=== PATIENT | male | born 1965 | race African-American/Black ===

== ENCOUNTER 2019-03-18 13:37 | Inpatient (IN) | payer OTHER ==
[2019-03-18 15:59] VITALS: BMI 29.2
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
[2019-03-18] MEDS ORDERED: MAGNESIUM CITRATE 300 ML BOTTLE PO PRN (18:42)
[2019-03-18] MEDS ORDERED: MENTHOL/PHENOL 1 EACH UD MM PRN (18:42)
[2019-03-18] MEDS ORDERED: BISMUTH SUBSALICYLATE 524 MG/30 ML UD PO PRN (18:42)
[2019-03-18] MEDS ORDERED: MAGNESIUM HYDROX 2400MG/30ML ORAL SUSPENSION 30 ML CUP PO PRN (18:42)
[2019-03-18] MEDS ORDERED: ACETAMINOPHEN 325 MG TABLET (FP) PO PRN ×2 (18:42)
[2019-03-18] MEDS ORDERED: IBUPROFEN 400 MG TABLET (FP) PO PRN (18:42)
[2019-03-18] MEDS ORDERED: diazePAM 5 MG TABLET PO PRN (18:42)
[2019-03-18] MEDS ORDERED: NICOTINE POLACRILEX 2 MG GUM BUC PRN (18:42)
[2019-03-18] MEDS ORDERED: diazePAM 5 MG TABLET PO ONE (18:42)
[2019-03-18] MEDS ORDERED: hydrOXYzine PAMOATE 25 MG CAPSULE (FP) PO PRN (18:42)
[2019-03-18] MEDS ORDERED: ALBUTEROL SO4 0.083% IH SOL 2.5 MG/3 ML VIAL.NEB. NEB PRN (18:44)
[2019-03-18] MEDS ORDERED: MELATONIN 5 MG TABLETS PO PRN (22:00)
[2019-03-18] MEDS: diazePAM 5 MG TABLET PO SCH (22:11)
[2019-03-18] MEDS: traZODone HCL 100 MG TABLET (FP) PO SCH (22:11)
[2019-03-18] MEDS: METHOCARBAMOL 500 MG TABLET PO PRN (22:12)
[2019-03-18] MEDS: cloNIDine HCL 0.1 MG TABLET PO PRN (22:12)
[2019-03-18] MEDS: THIAMINE HCL 100 MG TABLET (FP) PO SCH (22:12)
[2019-03-19] MEDS: diazePAM 5 MG TABLET PO SCH ×3 (06:03→22:22)
[2019-03-19] MEDS: PRENATAL VITAMINS W/ FOLIC ACID TABLET (FP) PO SCH (09:52)
--- NOTE | 2019-03-19 10:22 | PN ---
[facility] CIWA - CIWA Score Nausea/Vomitin-Mild Nausea/No Vomiting Muscle Tremors: 2 Anxiety: 2 Agitation: 2 Paroxysmal Sweats: 1-Minimal Palms Moist Orientation: 1-Uncertain about Date Tacttile Disturbances: 0-None Auditory Disturbances: 0-None Visual Disturbances: 0-None Headache: 1-Very Mild CIWA-Ar Total Score: 10 [facility] COWS - Scale Resting Pulse: 1= CT 81-100 Sweatin= Chills/Flushing Restless Observation: 0= Sits Still Pupil Size: 0= Normal to Room Light Bone or Joint Aches: 1= Mild Discomfort Runny Nose/ Eye Tearin= None GI Upset > 30mins: 2= Nausea/Diarrhea Tremor Observation of Outstretched Hands: 1= Tremor [place], Not Seen Yawning Observation: 0= None Anxiety or Irritability: 1=Feels Anxious/Irritable Goose Flesh Skin: 0=Smooth Skin COWS Score: 7 S Progress Note (SOAP) Subjective: doing ok with valium detox regimen ambulating on hallway more energy today social with peers in day rrom Objective: 03/19/19 10:22 Vital Signs Temperature 98.1 F 03/19/19 09:14 Pulse Rate 99 H 03/19/19 09:14 Respiratory Rate 18 03/19/19 09:14 Blood Pressure 125/78 03/19/19 09:14 O2 Sat by Pulse Oximetry (%) 03/19/19 10:22 lab pending Assessment: 03/19/19 10:22 withdrawal sx Plan: continue detox
[2019-03-19 10:28] LABS: HEMATOCRIT 33.7 % (35.4-49); HEMOGLOBIN 11.1 GM/dL (11.7-16.9); MCH 30.9 pg (25.7-33.7); MEAN CELL VOLUME 93.6 fl (80-96); PLATELET COUNT 173 K/MM3 (134-434); RDW 14.2 % (11.9-15.9); WHITE BLOOD COUNT 4.2 K/mm3 (4.0-10.0)
[2019-03-19 11:40] LABS: BILIRUBIN,TOTAL 0.2 mg/dL (0.2-1); CALCIUM 8.4 mg/dL (8.5-10.1); CREATININE 1.4 mg/dL (0.55-1.3); POTASSIUM 3.6 mmol/L (3.5-5.1); TOT PROT 6.3 g/dl (6.4-8.2)
[2019-03-19] MEDS: THIAMINE HCL 100 MG TABLET (FP) PO SCH (22:22)
[2019-03-19] MEDS: cloNIDine HCL 0.1 MG TABLET PO PRN (22:22)
[2019-03-19] MEDS: traZODone HCL 100 MG TABLET (FP) PO SCH (22:23)
[2019-03-20] MEDS: MAG HYDROX/AL HYDROX/SIMETH 30 ML UNIT-DOSE CUP PO PRN (00:33)
[2019-03-20] MEDS ORDERED: diazePAM 5 MG TABLET PO SCH ×2 (10:00→14:20)
[2019-03-20] MEDS: PRENATAL VITAMINS W/ FOLIC ACID TABLET (FP) PO SCH (10:24)
--- NOTE | 2019-03-20 13:51 | PN ---
S CIWA - CIWA Score Nausea/Vomitin-Mild Nausea/No Vomiting Muscle Tremors: 2 Anxiety: 3 Agitation: 2 Paroxysmal Sweats: No Perspiration Orientation: 0-Oriented Tacttile Disturbances: 0-None Auditory Disturbances: 0-None Visual Disturbances: 0-None Headache: 0-None Present CIWA-Ar Total Score: 8 S Progress Note (SOAP) Subjective: anxiety restlessness sleep better at night Objective: 03/20/19 13:53 Vital Signs Temperature 97.1 F L 03/20/19 09:29 Pulse Rate 63 03/20/19 09:29 Respiratory Rate 18 03/20/19 09:29 Blood Pressure 154/75 03/20/19 09:29 O2 Sat by Pulse Oximetry (%) Laboratory Last Values WBC 4.2 K/mm3 (4.0-10.0) 03/19/19 07:00 RBC 3.60 M/mm3 (4.00-5.60) L 03/19/19 07:00 Hgb 11.1 GM/dL (11.7-16.9) L 03/19/19 07:00 Hct 33.7 % (35.4-49) L 03/19/19 07:00 MCV 93.6 fl (80-96) 03/19/19 07:00 MCH 30.9 pg (25.7-33.7) 03/19/19 07:00 MCHC 33.0 g/dl (32.0-35.9) 03/19/19 07:00 RDW 14.2 % (11.9-15.9) 03/19/19 07:00 Plt Count 173 K/MM3 (134-434) 03/19/19 07:00 MPV 9.0 fl (7.5-11.1) 03/19/19 07:00 Sodium 139 mmol/L (136-145) 03/19/19 07:00 Potassium 3.6 mmol/L (3.5-5.1) 03/19/19 07:00 Chloride 107 mmol/L (98-107) 03/19/19 07:00 Carbon Dioxide 25 mmol/L (21-32) 03/19/19 07:00 Anion Gap 8 MMOL/L (8-16) 03/19/19 07:00 BUN 14 mg/dL (7-18) 03/19/19 07:00 Creatinine 1.4 mg/dL (0.55-1.3) H 03/19/19 07:00 Est GFR (CKD-EPI)AfAm 65.55 03/19/19 07:00 Est GFR (CKD-EPI)NonAf 56.56 03/19/19 07:00 Random Glucose 172 mg/dL (74-106) H 03/19/19 07:00 Calcium 8.4 mg/dL (8.5-10.1) L 03/19/19 07:00 Total Bilirubin 0.2 mg/dL (0.2-1) 03/19/19 07:00 AST 6 U/L (15-37) L 03/19/19 07:00 ALT 12 U/L (13-61) L 03/19/19 07:00 Alkaline Phosphatase 99 U/L (45-117) 03/19/19 07:00 Total Protein 6.3 g/dl (6.4-8.2) L 03/19/19 07:00 Albumin 3.0 g/dl (3.4-5.0) L 03/19/19 07:00 RPR Titer Nonreactive (NONREACTIVE) 03/19/19 07:00 lab noted Assessment: 03/20/19 13:55 withdrawal sx Plan: continue detox
[2019-03-20] MEDS: diazePAM 5 MG TABLET PO SCH (15:47)
[2019-03-20] MEDS: traZODone HCL 100 MG TABLET (FP) PO SCH (22:16)
[2019-03-20] MEDS: cloNIDine HCL 0.1 MG TABLET PO PRN (22:16)
[2019-03-20] MEDS: THIAMINE HCL 100 MG TABLET (FP) PO SCH (22:16)
[2019-03-20] MEDS: METHOCARBAMOL 500 MG TABLET PO PRN (22:18)
[2019-03-21] MEDS: diazePAM 5 MG TABLET PO SCH ×3 (01:00→23:38)
[2019-03-21] MEDS ORDERED: diazePAM 5 MG TABLET PO SCH (06:00)
[2019-03-21] MEDS: METHOCARBAMOL 500 MG TABLET PO PRN (06:49)
[2019-03-21] MEDS: PRENATAL VITAMINS W/ FOLIC ACID TABLET (FP) PO SCH (10:26)
--- NOTE | 2019-03-21 17:21 | PN ---
[facility] CIWA - CIWA Score Nausea/Vomitin-No Nausea/No Vomiting Muscle Tremors: None Anxiety: 4-Mod. Anxious/Guarded Agitation: 1-Slight > Activity Paroxysmal Sweats: 1-Minimal Palms Moist Orientation: 0-Oriented Tacttile Disturbances: 2-Mild Itch/Numbness/Burn Auditory Disturbances: 0-None Visual Disturbances: 2-Mild Sensitivity Headache: 0-None Present CIWA-Ar Total Score: 10 S COWS - Scale Resting Pulse: 1= ID 81-100 Sweatin= Chills/Flushing Restless Observation: 1= Difficult to Sit Still Pupil Size: 0= Normal to Room Light Bone or Joint Aches: 1= Mild Discomfort Runny Nose/ Eye Tearin= None GI Upset > 30mins: 0= None Tremor Observation of Outstretched Hands: 0= None Yawning Observation: 1= 1-2x During Session Anxiety or Irritability: 2=Irritable/Anxious Goose Flesh Skin: 0=Smooth Skin COWS Score: 7 S Progress Note (SOAP) Subjective: Anxious, Interrupted Sleep, Body Aches. Objective: PATIENT A & O X 3. IN NO ACUTE DISTRESS. 03/21/19 17:22 Vital Signs Temperature 99.1 F 03/21/19 17:05 Pulse Rate 81 03/21/19 17:05 Respiratory Rate 16 03/21/19 17:05 Blood Pressure 131/71 03/21/19 17:05 O2 Sat by Pulse Oximetry (%) Laboratory Tests 03/19/19 03/19/19 03/19/19 07:00 07:00 07:00 WBC 4.2 RBC 3.60 L Hgb 11.1 L Hct 33.7 L MCV 93.6 MCH 30.9 MCHC 33.0 RDW 14.2 Plt Count 173 MPV 9.0 Sodium 139 Potassium 3.6 Chloride 107 Carbon Dioxide 25 Anion Gap 8 BUN 14 Creatinine 1.4 H Est GFR (CKD-EPI)AfAm 65.55 Est GFR (CKD-EPI)NonAf 56.56 Random Glucose 172 H Calcium 8.4 L Total Bilirubin 0.2 AST 6 L ALT 12 L Alkaline Phosphatase 99 Total Protein 6.3 L Albumin 3.0 L RPR Titer Nonreactive LABS NOTED. Assessment: 03/21/19 17:23 WITHDRAWAL SYMPTOMS. Plan: CONTINUE DETOX. INCREASE DAILY PO FLUID / WATER INTAKE. PATIENT SCHEDULED FOR D/C TOMORROW AM. PATIENT IS CURRENTLY RECEIVING DAILY MVI CONTAINING B VITAMINS AND IRON WHILE ADMITTED FOR DETOX.
[2019-03-21] MEDS: MAG HYDROX/AL HYDROX/SIMETH 30 ML UNIT-DOSE CUP PO PRN (18:46)
--- NOTE | 2019-03-21 19:13 | PN ---
[facility] Progress Note (SOAP) Subjective: c/o sharp chest pain. Started on (R) side of sternum and then moved to (L). No recent hx heart burn. States chest pain increases w/ deep breath. PMHX : COPD, CHF, OA hip/knees w/ impaired walking BLE; Nose bleeds every 2-3 months . Hx cocaine and opioid use disorder Objective: Lungs CTA. O2 Sat = 98%. Abd S/NT. No edema. Vital Signs - 24 hr 03/21/19 03/21/19 03/21/19 03:30 06:23 06:30 Temperature 97.9 F Pulse Rate 68 Respiratory 18 18 18 Rate Blood Pressure 112/61 03/21/19 03/21/19 03/21/19 07:04 09:11 13:20 Temperature 98.0 F 99.2 F Pulse Rate 89 81 Respiratory 18 18 18 Rate Blood Pressure 134/71 114/79 03/21/19 03/21/19 17:05 18:20 Temperature 99.1 F 98.9 F Pulse Rate 81 91 H Respiratory 16 19 Rate Blood Pressure 131/71 131/81 Stat EKG: NSR w/(L) axis deviation. Minimal voltage criteria for LVH. Cannot rule out Anterior infract, age undetermined. w/ no prior EKG's for comparison. Assessment: Chest pain w/abnormal EKG - No prior EKG's for comparison. PMH: CHF Alcohol use disorder Opiate use Disorder Osteoarthritis hips/knees w/ chronic pain. Plan: Patient to be sent to [facility] ED for evaluation. Patient transported by ambulance. Report given to Dr. Thomas.
[2019-03-21 19:18] VITALS: BP 131/81; PULSE 91; TEMP 98.9
[2019-03-21] MEDS: traZODone HCL 100 MG TABLET (FP) PO SCH (23:38)
[2019-03-21] MEDS: THIAMINE HCL 100 MG TABLET (FP) PO SCH (23:38)
[2019-03-22] MEDS ORDERED: diazePAM 5 MG TABLET PO ONE (06:00)
[2019-03-22] MEDS: PRENATAL VITAMINS W/ FOLIC ACID TABLET (FP) PO SCH (10:00)
--- NOTE | 2019-03-22 15:44 | EKG ---
Test Reason : Blood Pressure : / mmHG Vent. Rate : 086 BPM Atrial Rate : 086 BPM P-R Int : 126 ms QRS Dur : 082 ms QT Int : 366 ms P-R-T Axes : 059 -31 030 degrees QTc Int : 437 ms NORMAL SINUS RHYTHM LEFT AXIS DEVIATION MINIMAL VOLTAGE CRITERIA FOR LVH, MAY BE NORMAL VARIANT CANNOT RULE OUT ANTERIOR INFARCT , AGE UNDETERMINED ABNORMAL ECG NO PREVIOUS ECGS AVAILABLE Confirmed by MD Iron, Jerry ([id number]) on 03/22/2019 3:43:46 PM Referred By: Confirmed By:Jerry Perdue MD
== END 2019-03-22 15:31 | disposition short-term general hospital (02) | DRG 774 ==
LOC: YASAS 13:37 → Y3N 16:15
PROVIDERS: ADMIT Surgery; ATTEND Surgery
PROC: HZ2ZZZZ Detoxification Services for Substance Abuse Treatment (ICD-10-PCS; principal; 2019-03-18)
DX: F10.230 Alcohol dependence with withdrawal, uncomplicated (principal); F14.20 Cocaine dependence, uncomplicated; F17.210 Nicotine dependence, cigarettes, uncomplicated; I50.9 Heart failure, unspecified; J44.9 Chronic obstructive pulmonary disease, unspecified; M16.0 Bilateral primary osteoarthritis of hip; M17.0 Bilateral primary osteoarthritis of knee; R26.2 Difficulty in walking, not elsewhere classified; G89.29 Other chronic pain; R07.9 Chest pain, unspecified; R94.31 Abnormal electrocardiogram [ECG] [EKG]
CPT/HCPCS: 36415; 80053; 85027; 86593; 93005; 93010; J0735

== ENCOUNTER 2019-03-21 20:18 | Observation (INO) | payer OTHER ==
[2019-03-21 20:45] VITALS: BMI 28.7
--- NOTE | 2019-03-21 21:06 | PDOC ---
History of Present Illness - General Chief Complaint: Chest Pain Stated Complaint: CHEST PAIN - History of Present Illness Initial Comments: The pt is a 53M w/ a reported history of CHF, COPD, OA, EtOH abuse, heroin abuse , and cocaine abuse who presents from [facility] for evaluation of 3-4 hours of chest pain. The pain began as substernal but is now left-sided, constant, sharp , non-radiating, associated with mild shortness of breath, and is not alleviated by anything that he can identify. Denies fevers/chills, vision changes, N/V/C/D, dysuria, hematuria, or blood in his stool. PMH: CHF, COPD, EtOH/cocaine/heroin abuse Allergies: Denies medication allergies 03/21/19 22:10 Past History - Past Medical History Allergies/Adverse Reactions: Allergies Allergy/AdvReac Type Severity Reaction Status Date / Time mayonnaise Allergy Verified 03/21/19 20:43 hot cereal Allergy Uncoded 03/21/19 20:43 Home Medications: Ambulatory Orders NK [No Known Home Medication] 03/21/19 Asthma: No Cardiac Disorders: No COPD: No Diabetes: No GI Disorders: No Disorders: No HTN: No Kidney Stones: No Seizures: No - Surgical History Abdominal Surgery: No Appendectomy: No Cardiac Surgery: No Cholecystectomy: No Lung Surgery: No Neurologic Surgery: No Orthopedic Surgery: No - Reproductive History Testicular Surgery: No - Suicide/Smoking/Psychosocial Hx Smoking History: Unknown if ever smoked Have you smoked in the past 12 months: Yes Number of Cigarettes Smoked Daily: 5 Information on smoking cessation initiated: No Hx Alcohol Use: Yes Drug/Substance Use Hx: Yes (cocaine/heroin) Hx Substance Use Treatment: No Review of Systems - Review of Systems Able to Perform ROS?: Yes Comments:: GENERAL/CONSTITUTIONAL: No fever or chills. No weakness HEAD, EYES, EARS, NOSE AND THROAT: No change in vision. No ear pain or discharge. No sore throat CARDIOVASCULAR: +chest pain RESPIRATORY: Denies cough, hemoptysis GASTROINTESTINAL: No nausea, vomiting, diarrhea or constipation GENITOURINARY: No dysuria, frequency, or change in urination MUSCULOSKELETAL: +chronic b/l hip and knee pain SKIN: No rash NEUROLOGIC: No headache, vertigo, loss of consciousness, or change in strength/ sensation ENDOCRINE: No increased thirst. No abnormal weight change Is the patient limited Bulgarian proficient: No *Physical Exam - Vital Signs Last Vital Signs Temp Pulse Resp BP Pulse Ox 97.9 F 92 H 18 138/82 100 03/21/19 20:43 03/21/19 20:43 03/21/19 20:43 03/21/19 20:43 03/21/19 20:43 - Physical Exam Comments: GENERAL: Awake, alert, and oriented to person/place/time, in no acute distress HEAD: No signs of trauma, normocephalic, atraumatic EYES: PERRLA, EOMI, sclera anicteric, conjunctiva clear ENT: Hearing grossly normal, nares patent, oropharynx clear without exudates. No uvular deviation. Moist mucosa CHEST: LUNGS: No distress, speaks full sentences, clear to auscultation bilaterally HEART: Regular rate and rhythm, normal S1 and S2, no murmurs appreciated, peripheral pulses normal and equal bilaterally ABDOMEN: Soft, nontender, normoactive bowel sounds. No guarding, no rebound. No masses EXTREMITIES: Normal inspection, Normal range of motion, no edema. No clubbing or cyanosis NEUROLOGICAL: Cranial nerves II through XII grossly intact. Normal speech, normal gait, no focal sensorimotor deficits SKIN: Warm, Dry 03/22/19 00:26 ED Treatment Course - LABORATORY CBC & Chemistry Diagram: 03/22/19 05:56 03/22/19 05:56 Medical Decision Making - Medical Decision Making The pt is a 53M w/ a history of CHF, COPD, EtOH abuse, cocaine abuse, and heroin abuse who presents for evaluation of sharp chest pain ED Course CMP, CBC, Trop I, BNP ECG Neb x1 Toradol 30mg IV once for pain No leukocytosis Mild anemia, Hgb 11.3, no indication to transfuse at this time Lytes wnl LFTs unremarkable Cr 1.4, same as previous BNP elevated ECG w/ NSR; HR 75; New T-wave inversions in I, II, III, V5, V5 when compared to an ECG performed at 1800 today. No others to compare with. Trop I neg ASA 324 PO given once 03/21/19 22:26 CXR w/ possible R pleural effusion versus infiltrate, cardiomegaly, no PNX, Plan for admission for chest pain w/ T-wave changes for further cardiac evaluation 03/21/19 22:41 *DC/Admit/Observation/Transfer Diagnosis at time of Disposition: Alcohol abuse, Heroin abuse Chest pain Qualifiers: Chest pain type: unspecified Qualified Code(s): R07.9 - Chest pain, unspecified COPD (chronic obstructive pulmonary disease) Qualifiers: COPD type: unspecified COPD Qualified Code(s): J44.9 - Chronic obstructive pulmonary disease, unspecified CHF (congestive heart failure) Qualifiers: Heart failure type: unspecified Heart failure chronicity: unspecified Qualified Code(s): I50.9 - Heart failure, unspecified Cocaine dependence Qualifiers: Substance use status: uncomplicated Qualified Code(s): F14.20 - Cocaine dependence, uncomplicated - Discharge Dispostion Condition at time of disposition: Good Decision to Admit order: Yes - Referrals - Patient Instructions - Post Discharge Activity
[2019-03-21 21:13] LABS: BASO % 0.7 % (0-2.0); MEAN CELL VOLUME 94.1 fl (80-96); MEAN PLT VOLUME 8.8 fl (7.5-11.1); WHITE BLOOD COUNT 5.4 K/mm3 (4.0-10.0)
[2019-03-21] MEDS ORDERED: KETOROLAC TROMETHAMINE 30 MG/1 ML VIAL IVPUSH ONE (21:13)
[2019-03-21 21:21] LABS: EOS % 2.1 % (0-4.5); HEMATOCRIT 35.2 % (35.4-49); HEMOGLOBIN 11.3 GM/dL (11.7-16.9); LYMPH % 25.8 % (8-40); MCH 30.2 pg (25.7-33.7); MCHC 32.1 g/dl (32.0-35.9); MONO % 7.3 % (3.8-10.2); NEUT % 64.1 % (42.8-82.8); PLATELET COUNT 160 K/MM3 (134-434); RBC 3.74 M/mm3 (4.00-5.60); RDW 13.7 % (11.9-15.9)
[2019-03-21 21:51] LABS: ALBUMIN 2.8 g/dl (3.4-5.0); BILIRUBIN,TOTAL 0.1 mg/dL (0.2-1); CALCIUM 8.7 mg/dL (8.5-10.1); CREATININE 1.4 mg/dL (0.55-1.3); POTASSIUM 4.4 mmol/L (3.5-5.1)
[2019-03-21] MEDS ORDERED: ALBUTEROL SO4 2.5/IPRATROPIUM 0.5 INH SOL 3 ML VIAL.NEB. NEB ONE ×2 (22:01→22:25)
[2019-03-21] MEDS ORDERED: KETOROLAC TROMETHAMINE 30 MG/1 ML VIAL ONE (22:25)
[2019-03-21] MEDS ORDERED: ASPIRIN 81 MG CHEWABLE TABLETS PO ONE (22:32)
--- NOTE | 2019-03-21 23:34 | PN ---
Teaching Attending Note Name of Resident: Brennan Salazar ATTENDING PHYSICIAN STATEMENT I saw and evaluated the patient. I reviewed the resident's note and discussed the case with the resident. I agree with the resident's findings and plan as documented. SUBJECTIVE: Patient is a 53 year old man with PMH of CHF, COPD, osteoarthritis, EtOH abuse, heroin abuse, and cocaine abuse who presents from [facility] for evaluation of 3- 4 hours of chest pain. The pain began as substernal but is now left-sided, constant, sharp, non-radiating, associated with mild shortness of breath, and is not alleviated by anything that he can identify. Denies fevers, chills, vision changes, nausea, vomiting, constipation, diarrhea, dysuria, hematuria, or hematochezia. Says he last used cocaine 1 week ago but drinks alcohol daily. OBJECTIVE: Alert Vital Signs Period Temp Pulse Resp BP Sys/Craig Pulse Ox Last 24 Hr 97.9 F 92 18 138/82 100 HEENT: No Jaundice, eye redness or discharge, PERRLA, EOMI. Normocephalic, atraumatic. External ears are normal and hearing is grossly intact. No nasal discharge. Neck: Supple, nontender. No palpable adenopathy or thyromegaly. No JVD Chest: Good effort. Clear to auscultation. Point tenderness left chest wall. Heart: Regular. No S3, rub or murmur Abdomen: Not distended, soft, nontender and no HSM. No rebound or guarding. Normal bowel sounds. Ext: Peripheral pulses intact. No leg edema. Dystrophic and unkempt toe nails, flaky dry skin in both legs. Skin: Warm and dry. No petechiae, rash or ecchymosis. Neuro: Alert. Oriented x3. CN 2-12 grossly intact. Sensation grossly intact in all four extremities and DTR are symmetric. Psych: Appropriate mood and affect. Good insight. Home Medications Medication Instructions Recorded NK [No Known Home Medication] 03/21/19 Abnormal Lab Results 03/21/19 03/21/19 03/21/19 21:05 21:05 21:05 RBC 3.74 L Hgb 11.3 L Hct 35.2 L Anion Gap 6 L BUN 22 H Creatinine 1.4 H Random Glucose 155 H Total Bilirubin 0.1 L AST 10 L B-Natriuretic Peptide 529.1 H Total Protein 6.0 L Albumin 2.8 L ASSESSMENT AND PLAN: 1. Chest pain - Pain is atypical, but he has risk factors and dynamic EKG changes. ECG in the ER showed NSR with T-wave inversions in I, II, III, V5, V5, ST depression in II when compared to an ECG performed at 1800 today at [facility]. Initial troponin is negative. CXR shows cardiomegaly with obscured right CP angle. ASA 324 PO given once in the ER. Will admit to telemetry to rule out ACS, get ECHO and cardiology consult. Will get chest CT to clarify findings on CXR. 2. Hypoalbuminemia - Possibly due to combined effects of malnutrition and inflammation associated with comorbid chronic conditions. Will ensure adequate dietary protein intake and also consult net front end developer. Will get urinalysis to rule out proteinuria. 3. Tobacco Use Counseled on risks associated with tobacco use. We will provide patient all the necessary assistance to facilitate smoking cessation and prescribe Nicotine patch. 4. YUMIKO? - Cause unclear. Has risk factors for CKD. Will get CPK, urinalysis, kidney sonogram, PTH and phospahte. Hydrate orally. Avoid nephrotoxic agents such as NSAIDS, aminoglycosides, contrast dyes and certain Alternative medicine products. 5. Anemia - Cause unclear. Mild, but will do basic anemia work up including serial stool guaiacs, reticulocyte count and iron studies. 6. Hypertension - Restart outpatient antihypertensive drugs and revise regimen to ensure smooth [id number] good BP control. Nonpharmacologic measures to control hypertension like weight loss, salt restriction and exercise discussed. 7. Alcohol/Drug abuse - Implement [facility] alcohol withdrawal protocol and do neurochecks. Monitor for drug withdrawal. Implement seizure, fall and aspiration precautions. Treat with thiamine and folic acid and monitor electrolytes (Ca,Mg,K,P). Counseled patient about abstaining from alcohol and illicit drug use. Will consult ehs specialist and refer to detox upon discharge. 8. DVT prophylaxis - Heparin 5000u sq tid. 9. Advance directives - Full code
[2019-03-22] MEDS ORDERED: KETOROLAC TROMETHAMINE 15 MG/ML VIAL IVPUSH PRN (00:59)
[2019-03-22] MEDS ORDERED: ACETAMINOPHEN 325 MG TABLET (FP) PO PRN (00:59)
--- NOTE | 2019-03-22 01:06 | HP ---
CHIEF COMPLAINT: chest pain PCP: [facility] [place] HISTORY OF PRESENT ILLNESS: 53 yo M with PMH of CHF (pt reported), COPD (pt reported), OA, EtOH abuse, heroin abuse, and cocaine abuse who presents from [facility] for evaluation of 3- 4 hours of sharp non radiating constant initially substernal but now L sided 8/ 10 chest pain, associated with mild SOB, and is not alleviated by anything that he can identify. pt says pain began after he pushed himself up from his chair with his arms. he did this bec his legs/knees hurt from his OA. pt says he has had cp in the past but not like this, and pain is not similar to gerd. pt received toradol w/ some relief but not much Denies fevers, chills, vision changes, nausea, vomiting, constipation, diarrhea , dysuria, hematuria, or hematochezia. Says he last used cocaine and alcohol 1 week ago but drinks. typically drinks 3 x 24 - oz cans 5-7 x/week lives in apartment in [place]. his medical care is at the [facility] [place] [facility] course was notable for: (1)ECG w/ NSR; HR 75; New T-wave inversions in I, II, III, V5, V6 and ST depression in II, III, AVF when compared to an ECG performed at 1800 today. Trop I negx1. ASA 324 PO given once (2)Neb x1, Toradol 30mg IV x1 (3)BNP 529, Mild anemia, Hgb 11.3 Recent Travel: PAST MEDICAL HISTORY: OA , COPD , CHF PAST SURGICAL HISTORY: dx of OA and is pending hip replacement April 24 @ [facility] . PSych : bipolar d/o , PTSD , denies current SI / Hi , past suicide attempts x 4 , most recently approx 10 years ago by cutting wrists , previously w/ pills Social History: Smoking: < 1/2 ppd Alcohol:3 x 24 - oz cans 5-7 x/week , latest use 1 week ago Drugs: heroin use : 2-3 bags via inhalation , first use 6-7 months ago. 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 age 29 murdered ) , Mother, Brother (4 older siblings ), Sister (1 d. AIDS , 1 D. cirrhosis liver ), Daughter (2 , A & W , 1 - 29 , 1 - age 14 lives in [place] ) Allergies mayonnaise Allergy (Verified 03/21/19 20:43) hot cereal Allergy (Uncoded 03/21/19 20:43) HOME MEDICATIONS: Home Medications Medication Instructions Recorded NK [No Known Home Medication] 03/21/19 REVIEW OF SYSTEMS per hpi PHYSICAL EXAMINATION Vital Signs - 24 hr 03/21/19 20:43 Temperature 97.9 F Pulse Rate 92 H Respiratory 18 Rate Blood Pressure 138/82 O2 Sat by Pulse 100 Oximetry (%) GENERAL: Awake, alert, and fully oriented, in mild acute distress. HEAD: Normal with no signs of trauma. EYES: extraocular movements intact, sclera anicteric, conjunctiva clear. No lid lag. EARS, NOSE, THROAT: nares patent, oropharynx clear without exudates. Moist mucous membranes. NECK: Normal range of motion, supple without lymphadenopathy, JVD, or masses. LUNGS: CTAB HEART: RRR normal S1 and S2 without murmur, rub or gallop. TTP left chest wall. ABDOMEN: Soft, nontender, not distended, normoactive bowel sounds, no guarding, no rebound, no masses. No hepatomegaly or splenomegaly. MUSCULOSKELETAL: Normal range of motion at all joints. No bony deformities or tenderness. No CVA tenderness. UPPER EXTREMITIES: 2+ pulses, warm, well-perfused. No cyanosis. No clubbing. No peripheral edema. LOWER EXTREMITIES: 2+ pulses, warm, well-perfused. No calf tenderness. No peripheral edema. Dystrophic and unkempt toe nails, flaky dry skin in both legs , no ulcers noted NEUROLOGICAL: Cranial nerves II-XII intact. Normal speech. PSYCHIATRIC: Cooperative. Good eye contact. Appropriate mood and affect. SKIN: Warm, dry, normal turgor, no rashes or lesions noted, normal capillary refill. Laboratory Results - last 24 hr 03/21/19 03/21/19 03/21/19 21:05 21:05 21:05 WBC 5.4 RBC 3.74 L Hgb 11.3 L Hct 35.2 L MCV 94.1 MCH 30.2 MCHC 32.1 RDW 13.7 Plt Count 160 MPV 8.8 Absolute Neuts (auto) 3.5 Neutrophils % 64.1 Lymphocytes % 25.8 Monocytes % 7.3 Eosinophils % 2.1 Basophils % 0.7 Nucleated RBC % 0 Sodium 140 Potassium 4.4 Chloride 107 Carbon Dioxide 26 Anion Gap 6 L BUN 22 H Creatinine 1.4 H Est GFR (CKD-EPI)AfAm 65.55 Est GFR (CKD-EPI)NonAf 56.56 Random Glucose 155 H Calcium 8.7 Total Bilirubin 0.1 L AST 10 L ALT 15 Alkaline Phosphatase 101 Troponin I 0.02 B-Natriuretic Peptide 529.1 H Total Protein 6.0 L Albumin 2.8 L ASSESSMENT/PLAN: 53 yo M with PMH of CHF (pt reported), COPD (pt reported), OA, EtOH abuse, heroin abuse, and cocaine abuse who presents from [facility] for evaluation of 3- 4 hours of sharp non radiating constant initially substernal but now L sided 8/ 10 chest pain, associated with mild SOB, and is not alleviated by anything that he can identify. Atypical Chest pain, r/o ACS w/ new EKG changes - ECG w/ NSR; HR 75; New T-wave inversions in I, II, III, V5, V6 and ST depression in II, III, AVF when compared to an ECG performed at 1800 today. Trop negx1. s/p ASA 324 PO in ED. pt pain is reproducible and in the setting of pushing himself up from his chair with his arms pain may be 2/2 muscle strain. however given risk factors and dynamic EKG changes will need to r/o ACS -s/p ASA 324 PO in ED -rpt ekg trop -Utox -tele -cardio consult, gitig -lipid panel, A1C, TSH -echo -pain ctl: tylenol toradol -CXR shows cardiomegaly with obscured right CP angle. -consider chest CT to clarify findings on CXR. YUMIKO? vs CKD? - Cr 1.4, only prior lab from 2 days ago. Avoid nephrotoxic agents. po hydration Mild Normorcytic Anemia - Cause unclear. reticulocyte count and iron studies. folate, B12 HTN - pt says he used to take lisinopril pt will need med rec Alcohol/Drug abuse - monitor for withdrawal consider detox consult consider ativan prn for sxs seizure, fall and aspiration precautions. thiamine and folic acid replete lytes prn FEN po hydration replete prn low salt diet ppx SQH tid Full code dispo tele obs Visit type - Emergency Visit Emergency Visit: Yes ED Registration Date: 03/22/19 Care time: The patient presented to the Emergency Department on the above date and was hospitalized for further evaluation of their emergent condition. - New Patient This patient is new to me today: Yes Date on this admission: 03/22/19 - Critical Care Critical Care patient: No
[2019-03-22] MEDS ORDERED: HEPARIN NA (PORCINE) 5,000 UNITS/ML 1ML VIAL ONE (01:17)
[2019-03-22] MEDS ORDERED: ASPIRIN 81 MG CHEWABLE TABLETS ONE (01:17)
--- NOTE | 2019-03-22 01:30 | PDOC ---
Documentation entered by Darryl Montiel SCRIBE, acting as scribe for Rika Conte MD. Rika Conte MD: This documentation has been prepared by the melibe, Darryl Montiel SCRIBE, under my direction and personally reviewed by me in its entirety. I confirm that the documentation accurately reflects all work, treatment, procedures, and medical decision making performed by me. Attending Attestation - Resident Resident Name: Anant Thomas - ED Attending Attestation I have performed the following: I have examined & evaluated the patient, The case was reviewed & discussed with the resident, I agree w/resident's findings & plan - HPI HPI: 03/21/19 21:38 The patient is a 53 year old male with a significant past medical history of CHF and COPD who presents to the emergency department with chest pain since earlier this evening. The patient states that he was at home when he went to stand up and experienced a sudden onset of sharp substernal chest pain. He states that his chest pain is not persistent and reports some associated shortness of breath. He states that this pain doesn't feel like his COPD or CHF. He denies any fever, chills, nausea, vomiting, diarrhea, constipation, palpitation, abdominal pain, dizziness or weakness. The patient denies any other complaints. - Physicial Exam PE: 03/21/19 23:59 ADULT EXAM GENERAL: Awake, alert, and fully oriented, in no acute distress HEAD: No signs of trauma EYES: PERRLA, EOMI, sclera anicteric, conjunctiva clear ENT: Auricles normal inspection, hearing grossly normal, nares patent, oropharynx clear without exudates. Moist mucosa NECK: Normal ROM, supple, no lymphadenopathy, JVD, or masses LUNGS: Breath sounds equal, clear to auscultation bilaterally. No wheezes, and no crackles HEART: Regular rate and rhythm, normal S1 and S2, no murmurs, rubs or gallops ABDOMEN: Soft, nontender, normoactive bowel sounds. No guarding, no rebound. No masses EXTREMITIES: Normal range of motion, no edema. No clubbing or cyanosis. No cords, erythema, or tenderness NEUROLOGICAL: Cranial nerves II through XII grossly intact. Normal speech, normal gait SKIN: Warm, Dry, normal turgor, no rashes or lesions noted. - Medical Decision Making 03/22/19 01:27 Pt will be admitted to the tele unit as he has EKG changes, flipped T waves inferolaterally. He also has a hx of CAD and he used cocaine as well as a hx of polysubstance abuse. First set of enzymes normal.
[2019-03-22] MEDS: HEPARIN NA (PORCINE) 5,000 UNITS/ML 1ML VIAL SQ SCH ×3 (01:35→17:05)
[2019-03-22 07:19] LABS: METHADONE, UR NEGATIVE ng/ml (CUTOFF=300); OPIATES, URI NEGATIVE ng/ml (CUTOFF=300); PHENCYCLIDINE,URINE NEGATIVE ng/ml (CUTOFF=25); URINE AMPHETAMINES NEGATIVE ng/ml (CUTOFF=500); URINE BARBITURATES NEGATIVE ng/ml (CUTOFF=200)
[2019-03-22 07:20] LABS: BASO % 0.6 % (0-2.0); EOS % 2.1 % (0-4.5); HEMATOCRIT 34.8 % (35.4-49); HEMOGLOBIN 11.5 GM/dL (11.7-16.9); LYMPH % 29.8 % (8-40); MCH 30.9 pg (25.7-33.7); MCHC 33.2 g/dl (32.0-35.9); MEAN CELL VOLUME 93.1 fl (80-96); MEAN PLT VOLUME 9.2 fl (7.5-11.1); MONO % 6.5 % (3.8-10.2); PLATELET COUNT 158 K/MM3 (134-434); RBC 3.74 M/mm3 (4.00-5.60); RDW 13.5 % (11.9-15.9); WHITE BLOOD COUNT 5.2 K/mm3 (4.0-10.0)
[2019-03-22 08:15] LABS: COCAINE, UR POSITIVE ng/ml (CUTOFF=300); URINE BENZODIAZEPINES POSITIVE ng/ml (CUTOFF=200)
[2019-03-22 08:34] LABS: ALBUMIN 2.8 g/dl (3.4-5.0); BILIRUBIN,TOTAL 0.3 mg/dL (0.2-1); CALCIUM 8.7 mg/dL (8.5-10.1); CREATININE 1.3 mg/dL (0.55-1.3); MAGNESIUM 2.3 mg/dL (1.8-2.4); PHOSPHOROUS 2.2 mg/dL (2.5-4.9); POTASSIUM 4.7 mmol/L (3.5-5.1)
--- NOTE | 2019-03-22 08:37 | CON.CARD ---
Consult Consult Specialty:: cardio - History of Present Illness Chief Complaint: cp History of Present Illness: 53 M here with CP. pain began when pushed himself up out of a chair using his arms. sternal to L pectoral locations at first, sharp quality, reproducible on palpitation. currently, pain very localized (2-3 fingerbreadths) L parasternal region, very tender and reproducible--worse when breathes in. feels sob at time of pain spasms. otherwise feels breathing is "a little restricted" no palpit, syncope sees a collector of port as outpatient for CHF. was on diuretic in past but was eventually stopped PMH: reports h/o CHF and COPD bipolar, PTSD etoh abuse cocaine, heroin abuse - Alcohol/Substance Use Hx Alcohol Use: Yes - Smoking History Smoking history: Current every day smoker Have you smoked in the past 12 months: Yes Aproximately how many cigarettes per day: 5 Home Medications - Allergies Allergies/Adverse Reactions: Allergies Allergy/AdvReac Type Severity Reaction Status Date / Time mayonnaise Allergy Verified 03/21/19 20:43 hot cereal Allergy Uncoded 03/21/19 20:43 - Home Medications Home Medications: Ambulatory Orders NK [No Known Home Medication] 03/21/19 Family Disease History - Family Disease History Family Disease History: Diabetes: Mother (chf), Other: Grandparent (chf ), Father (d. age 29 murdered ), Mother, Brother (4 older siblings ), Sister (1 d. AIDS , 1 D. cirrhosis liver ), Daughter (2 , A & W , 1 - 29 , 1 - age 14 lives in [place] ) Review of Systems - Review of Systems Constitutional: denies: Chills, Fever Eyes: denies: Eye Pain HENT: denies: Nasal Congestion Neck: denies: Stiffness Cardiovascular: denies: Palpitations Respiratory: denies: Orthopnea, PND Gastrointestinal: denies: Diarrhea, Rectal Bleeding Genitourinary: denies: Burning, Hematuria Musculoskeletal: denies: Muscle Pain Integumentary: denies: Rash Neurological: denies: Numbness, Seizure, Syncope Endocrine: denies: Excessive Sweating Hematology/Lymphatic: denies: Excessive Bleeding Vital Signs: Vital Signs Temperature 97.6 F 03/22/19 05:27 Pulse Rate 70 03/22/19 05:27 Respiratory Rate 16 03/22/19 05:27 Blood Pressure 145/79 03/22/19 05:27 O2 Sat by Pulse Oximetry (%) 100 03/22/19 02:05 Constitutional: Yes: Well Nourished, No Distress Eyes: No: Sclera Icterus HENT: No: Nasal Congestion Neck: No: Decreased ROM Respiratory: Yes: CTA Bilaterally. No: Accessory Muscle Use, Rales, Wheezes Gastrointestinal: Yes: Normal Bowel Sounds. No: Distention, Hepatomegaly, Palpable Mass, Tenderness Cardiovascular: Yes: Regular Rate and Rhythm, Other (localized tenderness over chief complaint area, reproduces the pain) JVD: No Carotid Bruit: No PMI: Non-Displaced Heart Sounds: Yes: S1, S2. No: Gallop Murmur: No: Systolic Murmur, Diastolic Murmur Musculoskeletal: Yes: Other (No kyphosis) Extremities: No: Cool, Cyanosis Edema: No Peripheral Pulses: 2+ Left Carotid, 2+ Right Carotid, 2+ Left Doralis Pedis, 2+ Right Dorsalis Pedis Integumentary: No: Jaundice Neurological: Yes: Alert, Oriented (x3) Psychiatric: No: Agitated - Other Data Labs, Other Data: CBC, BMP 03/22/19 05:56 Troponin, BNP 03/21/19 03/21/19 03/22/19 21:05 21:05 00:15 Troponin I 0.02 0.02 B-Natriuretic Peptide 529.1 H 03/22/19 03/22/19 05:56 05:56 Troponin I 0.02 Cancelled B-Natriuretic Peptide Troponin, BNP 03/21/19 03/21/19 03/22/19 21:05 21:05 00:15 Troponin I 0.02 0.02 B-Natriuretic Peptide 529.1 H 03/22/19 03/22/19 05:56 05:56 Troponin I 0.02 Cancelled B-Natriuretic Peptide Laboratory Tests 03/21/19 03/21/19 03/22/19 21:05 21:05 00:15 WBC Hgb Plt Count Sodium 140 Potassium 4.4 Carbon Dioxide 26 BUN 22 H Creatinine 1.4 H AST 10 L ALT 15 Troponin I 0.02 0.02 B-Natriuretic Peptide 529.1 H Albumin 2.8 L Triglycerides Cholesterol Total LDL Cholesterol HDL Cholesterol 03/22/19 03/22/19 05:56 05:56 WBC 5.2 Hgb 11.5 L Plt Count 158 Sodium Potassium Carbon Dioxide BUN Creatinine AST ALT Troponin I 0.02 B-Natriuretic Peptide Albumin Triglycerides 146 Cholesterol 116 Total LDL Cholesterol 57 HDL Cholesterol 41 Assessment/Plan ECG #1 (03/21, 18:00): NSR, LAFB, YEYO. nonsp ST-Ts infer and lateral leads ECG #2 (03/21, 22:17): NSR, LAFB, YEYO. NSST-Ts inferior and lateral leads, now involving V5/6 as well (new TWIs here) CXR: clear lungs/pleura chest pain: -nonspecific change in ST-Ts from 1st to 2nd ecg (though remains lateral leads, the second also involved V5/6 with deeper TWI's in previously abnormal leads) -trop neg x 3 -rpt ECG today -suspect these ecg variations are nonspecific finding related to underlying LVH (though voltages not high) and/or to CHF. -his pain is costochondritis and he has no ACS--rec prn ibuprofen CHF, ? type: -no details, pt reports prior hx treated by outside cardio cardiomegaly on CXR, nonsp ECG changes--? underlying hypertensive heart dz. -echo -currently with mild sob. euvolemic appearing with clear cxr--? mild volume up. -will give lasix 40 IV x 1 today--observe response (including labs) HTN: -mildly hypertensive here (sbp 130s-140s) -defer meds for now polysubstance abuse: -per hospitalist
[2019-03-22] MEDS: FOLIC ACID 1 MG TABLET (FP) PO SCH (09:32)
[2019-03-22] MEDS: THIAMINE HCL 100 MG TABLET (FP) PO SCH ×2 (09:32→21:01)
--- NOTE | 2019-03-22 11:15 | PN ---
Progress Note (short form) - Note Progress Note: Patient is lying in bed c/o having lower extremity pain. Vital Signs Temperature 98.2 F 03/22/19 09:01 Pulse Rate 85 03/22/19 09:01 Respiratory Rate 18 03/22/19 09:01 Blood Pressure 141/72 03/22/19 09:01 O2 Sat by Pulse Oximetry (%) 100 03/22/19 10:00 GENERAL: Awake, alert, and fully oriented, in mild acute distress. HEAD: Normal with no signs of trauma. EYES: extraocular movements intact, sclera anicteric, conjunctiva clear. EARS, NOSE, THROAT: oropharynx clear without exudates. Moist mucous membranes. NECK: Normal range of motion, supple without lymphadenopathy, JVD, or masses. LUNGS: CTAB HEART: RRR normal S1 and S2 without murmur, rub or gallop. ABDOMEN: Soft, nontender, not distended, normoactive bowel sounds, no guarding, no rebound, no masses. No hepatomegaly or splenomegaly. MUSCULOSKELETAL: Normal range of motion at all joints. No bony deformities or tenderness. No CVA tenderness. EXTREMITIES: 2+ pulses, warm, well-perfused. No calf tenderness. No peripheral edema. dry skin. NEUROLOGICAL: Cranial nerves II-XII intact. Normal speech. PSYCHIATRIC: Cooperative. Good eye contact. Appropriate mood and affect. SKIN: Warm, dry, normal turgor, no rashes or lesions noted, normal capillary refill. CBCD WBC 5.2 K/mm3 (4.0-10.0) 03/22/19 05:56 RBC 3.74 M/mm3 (4.00-5.60) L 03/22/19 05:56 Hgb 11.5 GM/dL (11.7-16.9) L 03/22/19 05:56 Hct 34.8 % (35.4-49) L 03/22/19 05:56 MCV 93.1 fl (80-96) 03/22/19 05:56 MCHC 33.2 g/dl (32.0-35.9) 03/22/19 05:56 RDW 13.5 % (11.9-15.9) 03/22/19 05:56 Plt Count 158 K/MM3 (134-434) 03/22/19 05:56 MPV 9.2 fl (7.5-11.1) 03/22/19 05:56 CMP Sodium 139 mmol/L (136-145) 03/22/19 05:56 Potassium 4.7 mmol/L (3.5-5.1) 03/22/19 05:56 Chloride 107 mmol/L (98-107) 03/22/19 05:56 Carbon Dioxide 28 mmol/L (21-32) 03/22/19 05:56 Anion Gap 5 MMOL/L (8-16) L 03/22/19 05:56 BUN 25 mg/dL (7-18) H 03/22/19 05:56 Creatinine 1.3 mg/dL (0.55-1.3) 03/22/19 05:56 Random Glucose 85 mg/dL (74-106) 03/22/19 05:56 Calcium 8.7 mg/dL (8.5-10.1) 03/22/19 05:56 Total Bilirubin 0.3 mg/dL (0.2-1) 03/22/19 05:56 AST 13 U/L (15-37) L 03/22/19 05:56 ALT 15 U/L (13-61) 03/22/19 05:56 Alkaline Phosphatase 77 U/L (45-117) 03/22/19 05:56 Total Protein 6.0 g/dl (6.4-8.2) L 03/22/19 05:56 Albumin 2.8 g/dl (3.4-5.0) L 03/22/19 05:56 CARDIAC ENZYMES Troponin I 0.02 ng/ml (0.00-0.05) 03/22/19 05:56 Current Medications Generic Name Dose Route Start Last Admin Trade Name Freq PRN Reason Stop Dose Admin Acetaminophen 650 mg 03/22/19 00:59 Tylenol - PO Q4H PRN PAIN LEVEL 6-10 Folic Acid 1 mg 03/22/19 10:00 03/22/19 09:32 Folic Acid - PO 1 mg DAILY GIULIANA Administration Heparin Sodium (Porcine) 5,000 unit 03/22/19 02:00 03/22/19 09:32 Heparin - SQ 5,000 unit Q8H-IV GIULIANA Administration Ketorolac Tromethamine 15 mg 03/22/19 04:17 Toradol Injection - IVPUSH 03/27/19 00:58 Q6H PRN PAIN LEVEL 6-10 Thiamine HCl 100 mg 03/22/19 10:00 03/22/19 09:32 Vitamin B1 - PO 100 mg BID GIULIANA Administration Home Medications Medication Instructions Recorded NK [No Known Home Medication] 03/21/19 XR: clear lungs/pleura Assessment and plan: Patient is a 53 yo M with PMHx of CHF , COPD as per patient , OA, EtOH abuse, heroin abuse, and cocaine abuse who presents from [facility] for evaluation of acute chest pain that lasted for 3 hours. Patient admits to using cocaine. # Acute chest pain r/o ACS : CE negative as per cardio to Tx to med surge s/p ASA in ED, cardio consult dr. Dupont appreciated, lipid panel, A1C, TSH, echo # Polysubstance abuse : monitor for withdrawal , detox consult , ativan prn , seizure, fall and aspiration precautions, thiamine and folic acid ,replete lytes prn # YUMIKO: IVF /oral hydration # HTN - on lisinopril DVT Px: Heparin Visit type - Emergency Visit Emergency Visit: Yes ED Registration Date: 03/22/19 Care time: The patient presented to the Emergency Department on the above date and was hospitalized for further evaluation of their emergent condition. - New Patient This patient is new to me today: No - Critical Care Critical Care patient: No - Discharge Referral Referred to [facility] Med [facility].C[facility] No
[2019-03-22] MEDS ORDERED: FUROSEMIDE 40 MG/4 ML INJECTABLE VIAL IVPUSH ONE (11:44)
[2019-03-22] MEDS: KETOROLAC TROMETHAMINE 30 MG/1 ML VIAL IVPUSH PRN (13:33)
--- NOTE | 2019-03-22 15:27 | EKG ---
Test Reason : Blood Pressure : / mmHG Vent. Rate : 075 BPM Atrial Rate : 075 BPM P-R Int : 140 ms QRS Dur : 076 ms QT Int : 394 ms P-R-T Axes : 053 -31 -51 degrees QTc Int : 439 ms NORMAL SINUS RHYTHM LEFT AXIS DEVIATION NONSPECIFIC T WAVE ABNORMALITY ABNORMAL ECG WHEN COMPARED WITH ECG OF 21-MAR-2019 22:17, NO SIGNIFICANT CHANGE WAS FOUND Confirmed by MD Iron, Jerry ([id number]) on 03/22/2019 3:26:38 PM Referred By: Faviola BAINS Confirmed By:Jerry Perdue MD
--- NOTE | 2019-03-22 15:31 | EKG ---
Test Reason : Blood Pressure : / mmHG Vent. Rate : 075 BPM Atrial Rate : 075 BPM P-R Int : 142 ms QRS Dur : 078 ms QT Int : 398 ms P-R-T Axes : 057 -18 258 degrees QTc Int : 444 ms NORMAL SINUS RHYTHM T WAVE ABNORMALITY, CONSIDER INFEROLATERAL ISCHEMIA ABNORMAL ECG WHEN COMPARED WITH ECG OF 21-MAR-2019 18:00, INVERTED T WAVES HAVE REPLACED NONSPECIFIC T WAVE ABNORMALITY IN INFERIOR LEADS Confirmed by MD Iron, Jerry ([id number]) on 03/22/2019 3:31:46 PM Referred By: Confirmed By:Jerry Perdue MD
[2019-03-22] MEDS: NAPH,MB-DB/K PH,MBDB POWDER PACKET PO SCH (21:01)
[2019-03-22] MEDS ORDERED: MELATONIN 5 MG TABLETS PO ONE (22:00)
[2019-03-23] MEDS ORDERED: MELATONIN 5 MG TABLETS PO ONE (01:37)
[2019-03-23] MEDS ORDERED: METOPROLOL TARTRATE 5 MG/5 ML VIAL IVPUSH ONE (01:40)
[2019-03-23] MEDS: HEPARIN NA (PORCINE) 5,000 UNITS/ML 1ML VIAL SQ SCH ×4 (01:44→22:38)
[2019-03-23] MEDS ORDERED: METOPROLOL TARTRATE 25 MG TABLET (FP) PO ONE (02:18)
[2019-03-23] MEDS ORDERED: traZODone HCL 100 MG TABLET (FP) PO ONE (03:04)
[2019-03-23 06:37] LABS: SERUM IRON SATURATION 24 % (15-55); TOTAL IRON BINDING CAPACITY 256 ug/dL (250-450); UIBC 194 ug/dL (111-343)
[2019-03-23 07:35] LABS: CALCIUM 8.8 mg/dL (8.5-10.1); CREATININE 1.4 mg/dL (0.55-1.3); POTASSIUM 4.4 mmol/L (3.5-5.1)
--- NOTE | 2019-03-23 08:16 | PN ---
Progress Note, Physician Chief Complaint: cp History of Present Illness: cp much less--still localized and pleuritic thinks breathing still feels a bit short and restricted--not his baseline. signif urine output after lasix yest no leg swelling no palpit - Current Medication List Current Medications: Active Medications Acetaminophen (Tylenol -) 650 mg PO Q4H PRN PRN Reason: PAIN LEVEL 6-10 Last Admin: 03/22/19 12:19 Dose: 650 mg Folic Acid (Folic Acid -) 1 mg PO DAILY [facility] Last Admin: 03/22/19 09:32 Dose: 1 mg Heparin Sodium (Porcine) (Heparin -) 5,000 unit SQ Q8H-IV GIULIANA Last Admin: 03/23/19 01:44 Dose: 5,000 unit Ketorolac Tromethamine (Toradol Injection -) 15 mg IVPUSH Q6H PRN PRN Reason: PAIN LEVEL 6-10 Stop: 03/27/19 00:58 Last Admin: 03/22/19 13:33 Dose: 15 mg Potassium Phos/Sodium Phos (Phos-Nak Packet -) 1 packet PO BID [facility] Stop: 03/23/19 22:01 Last Admin: 03/22/19 21:01 Dose: Not Given Thiamine HCl (Vitamin B1 -) 100 mg PO BID [facility] Last Admin: 03/22/19 21:01 Dose: Not Given - Objective Vital Signs: Vital Signs Temperature 97.5 F L 03/23/19 06:00 Pulse Rate 66 03/23/19 06:00 Respiratory Rate 18 03/23/19 06:00 Blood Pressure 135/76 03/23/19 06:00 O2 Sat by Pulse Oximetry (%) 100 03/23/19 02:00 Constitutional: Yes: Well Nourished, No Distress, Calm Cardiovascular: Yes: Regular Rate and Rhythm, S1, S2. No: Gallop, Murmur Respiratory: Yes: Regular, CTA Bilaterally. No: Accessory Muscle Use, Rales, Wheezes Extremities: No: Cold Edema: No Neurological: Yes: Alert, Oriented Psychiatric: No: Agitated Labs: CBC, BMP 03/22/19 05:56 03/23/19 06:25 Assessment/Plan ECG #1 (03/21, 18:00): NSR, LAFB, YEYO. nonsp ST-Ts infer and lateral leads ECG #2 (03/21, 22:17): NSR, LAFB, YEYO. NSST-Ts inferior and lateral leads, now involving V5/6 as well (new TWIs here) ECG #3 (03/22): NSR, no signif change (V5 TWI now upright) CXR: clear lungs/pleura chest pain, abnormal ECG: -trop neg x 3 -his pain is costochondritis and he has no ACS--rec prn ibuprofen -nonspecific change on serial ECGs, suspect these ecg variations are nonspecific finding related to underlying LVH (though voltages not high) and/or to CHF. CHF, ? type: -no details, pt reports prior hx treated by outside cardio cardiomegaly on CXR, nonsp ECG changes--? underlying hypertensive heart dz. -echo -currently with mild sob. euvolemic appearing with clear cxr--? mild volume up. -given lasix 40 IV trial on 03/22--creat stable, bun up slightly -03/23: sob sx's equivocal for HF related (no other signs of chf... ? withdrawal sx). repeat lasix 40 IV x 1 today. reassess labs tomorrow, ? po maintenance lasix vs hold HTN: -BP to 170s, given metoprolol PO x1 -start amlodipine polysubstance abuse: -per hospitalist
--- NOTE | 2019-03-23 08:52 | PN ---
Physical Exam: SUBJECTIVE: Patient seen and examined at bedside. He had trouble sleeping. complains of pain in legs, knees, chest. No other complaints. No ANGEL, nausea, vomiting, diarrhea. OBJECTIVE: Vital Signs Period Temp Pulse Resp BP Sys/Craig Pulse Ox Last 24 Hr 97.5 F-98.5 F 66-92 18-18 135-172/72-95 100-100 Gen: comfortable, NAD HEENT: NCAT, EOMI Neck: no jvd, supple Cardio: rrr, norm s1s2, no mrg appreciated Pulm: cta b/l, no rales/ronchi Abd: nondistended, soft, nontender Ext: no edema, 2+ pulses Laboratory Results - last 24 hr 03/22/19 03/22/19 03/22/19 05:56 05:56 05:56 Retic Count 0.72 Sodium Potassium Chloride Carbon Dioxide Anion Gap BUN Creatinine Est GFR (CKD-EPI)AfAm Est GFR (CKD-EPI)NonAf Random Glucose Hemoglobin A1c % 5.6 Calcium Iron 62 TIBC 256 Iron Saturation 24 03/23/19 06:25 Retic Count Sodium 137 Potassium 4.4 Chloride 104 Carbon Dioxide 29 Anion Gap 4 L BUN 29 H Creatinine 1.4 H Est GFR (CKD-EPI)AfAm 65.55 Est GFR (CKD-EPI)NonAf 56.56 Random Glucose 88 Hemoglobin A1c % Calcium 8.8 Iron TIBC Iron Saturation Active Medications Generic Name Dose Route Start Last Admin Trade Name Freq PRN Reason Stop Dose Admin Acetaminophen 650 mg 03/22/19 00:59 03/22/19 12:19 Tylenol - PO 650 mg Q4H PRN Administration PAIN LEVEL 6-10 Amlodipine Besylate 5 mg 03/23/19 10:00 Norvasc - PO DAILY GIULIANA Folic Acid 1 mg 03/22/19 10:00 03/22/19 09:32 Folic Acid - PO 1 mg DAILY GIULIANA Administration Heparin Sodium (Porcine) 5,000 unit 03/22/19 02:00 03/23/19 01:44 Heparin - SQ 5,000 unit Q8H-IV GIULIANA Administration Ketorolac Tromethamine 15 mg 03/22/19 04:17 03/22/19 13:33 Toradol Injection - IVPUSH 03/27/19 00:58 15 mg Q6H PRN Administration PAIN LEVEL 6-10 Potassium Phos/Sodium Phos 1 packet 03/22/19 22:00 03/22/19 21:01 Phos-Nak Packet - PO 03/23/19 22:01 Not Given BID [facility] Thiamine HCl 100 mg 03/22/19 10:00 03/22/19 21:01 Vitamin B1 - PO Not Given BID [facility] ASSESSMENT/PLAN: 53 yo M with PMH of CHF (pt reported), COPD (pt reported), OA, EtOH abuse, heroin abuse, and cocaine abuse who presents from [facility] for evaluation of chest pain. Put was put on tele obs for ACS r/o. #r/o ACS -trop neg x 3 -EKG with nonspecific ST and T wave changes unchanged on repeat study -Cardio consulted: pain likely costochondritis, ? LVH, ? CHF, echo pending #HTN -on lisinopril. 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
[2019-03-23] MEDS: NAPH,MB-DB/K PH,MBDB POWDER PACKET PO SCH ×2 (09:16→22:38)
[2019-03-23] MEDS: THIAMINE HCL 100 MG TABLET (FP) PO SCH ×2 (09:17→22:38)
[2019-03-23] MEDS: KETOROLAC TROMETHAMINE 30 MG/1 ML VIAL IVPUSH PRN ×2 (09:17→22:41)
[2019-03-23] MEDS: FOLIC ACID 1 MG TABLET (FP) PO SCH (09:18)
[2019-03-23] MEDS: amLODIPine BESYLATE 5 MG TABLET (FP) PO SCH (09:18)
[2019-03-23] MEDS ORDERED: FUROSEMIDE 40 MG/4 ML INJECTABLE VIAL IVPUSH ONE (09:55)
--- NOTE | 2019-03-23 13:07 | PN ---
Teaching Attending Note Name of Resident: Chema Macias ATTENDING PHYSICIAN STATEMENT I saw and evaluated the patient. I reviewed the resident's note and discussed the case with the resident. I agree with the resident's findings and plan as documented. SUBJECTIVE: Patient is comfortable with no acute distress. Patient feels better today. OBJECTIVE: Vital Signs Temperature 97.4 F L 03/23/19 09:00 Pulse Rate 78 03/23/19 09:00 Respiratory Rate 18 03/23/19 10:00 Blood Pressure 127/87 03/23/19 09:00 O2 Sat by Pulse Oximetry (%) 100 03/23/19 10:00 Initial Vital Signs Temp Pulse Resp BP Pulse Ox 97.9 F 92 H 18 138/82 100 03/21/19 20:43 03/21/19 20:43 03/21/19 20:43 03/21/19 20:43 03/21/19 20:43 GENERAL: Awake, alert, and fully oriented, in mild acute distress. HEAD: Normal with no signs of trauma. EYES: extraocular movements intact, sclera anicteric, conjunctiva clear. EARS, NOSE, THROAT: oropharynx clear without exudates. Moist mucous membranes. NECK: Normal range of motion, supple without lymphadenopathy, JVD, or masses. LUNGS: CTAB HEART: RRR normal S1 and S2 without murmur, rub or gallop. ABDOMEN: Soft, NT,ND, normoactive bowel sounds, no guarding, no rebound, no masses. No hepatomegaly or splenomegaly. MUSCULOSKELETAL: Normal range of motion at all joints. No bony deformities or tenderness. No CVA tenderness. EXTREMITIES: 2+ pulses, warm, well-perfused. No calf tenderness. No peripheral edema. dry skin. NEUROLOGICAL: Cranial nerves II-XII intact. Normal speech. PSYCHIATRIC: Cooperative. Good eye contact. Appropriate mood and affect. SKIN: Warm, dry, normal turgor, no rashes or lesions noted, normal capillary refill. CBCD WBC 5.2 K/mm3 (4.0-10.0) 03/22/19 05:56 RBC 3.74 M/mm3 (4.00-5.60) L 03/22/19 05:56 Hgb 11.5 GM/dL (11.7-16.9) L 03/22/19 05:56 Hct 34.8 % (35.4-49) L 03/22/19 05:56 MCV 93.1 fl (80-96) 03/22/19 05:56 MCHC 33.2 g/dl (32.0-35.9) 03/22/19 05:56 RDW 13.5 % (11.9-15.9) 03/22/19 05:56 Plt Count 158 K/MM3 (134-434) 03/22/19 05:56 MPV 9.2 fl (7.5-11.1) 03/22/19 05:56 CMP Sodium 137 mmol/L (136-145) 03/23/19 06:25 Potassium 4.4 mmol/L (3.5-5.1) 03/23/19 06:25 Chloride 104 mmol/L (98-107) 03/23/19 06:25 Carbon Dioxide 29 mmol/L (21-32) 03/23/19 06:25 Anion Gap 4 MMOL/L (8-16) L 03/23/19 06:25 BUN 29 mg/dL (7-18) H 03/23/19 06:25 Creatinine 1.4 mg/dL (0.55-1.3) H 03/23/19 06:25 Random Glucose 88 mg/dL (74-106) 03/23/19 06:25 Calcium 8.8 mg/dL (8.5-10.1) 03/23/19 06:25 Total Bilirubin 0.3 mg/dL (0.2-1) 03/22/19 05:56 AST 13 U/L (15-37) L 03/22/19 05:56 ALT 15 U/L (13-61) 03/22/19 05:56 Alkaline Phosphatase 77 U/L (45-117) 03/22/19 05:56 Total Protein 6.0 g/dl (6.4-8.2) L 03/22/19 05:56 Albumin 2.8 g/dl (3.4-5.0) L 03/22/19 05:56 CARDIAC ENZYMES Troponin I 0.02 ng/ml (0.00-0.05) 03/22/19 05:56 Current Medications Generic Name Dose Route Start Last Admin Trade Name Freq PRN Reason Stop Dose Admin Acetaminophen 650 mg 03/22/19 00:59 05/25/19 12:19 Tylenol - PO 650 mg Q4H PRN Administration PAIN LEVEL 6-10 Amlodipine Besylate 5 mg 03/23/19 10:00 03/23/19 09:18 Norvasc - PO 5 mg DAILY GIULIANA Administration Folic Acid 1 mg 03/22/19 10:00 03/23/19 09:18 Folic Acid - PO 1 mg DAILY GIULIANA Administration Heparin Sodium (Porcine) 5,000 unit 03/22/19 02:00 03/23/19 09:19 Heparin - SQ 5,000 unit Q8H-IV GIULIANA Administration Ketorolac Tromethamine 15 mg 03/22/19 04:17 03/23/19 09:17 Toradol Injection - IVPUSH 03/27/19 00:58 15 mg Q6H PRN Administration PAIN LEVEL 6-10 Potassium Phos/Sodium Phos 1 packet 03/22/19 22:00 03/23/19 09:16 Phos-Nak Packet - PO 03/23/19 22:01 1 packet BID GIULIANA Administration Thiamine HCl 100 mg 03/22/19 10:00 03/23/19 09:17 Vitamin B1 - PO 100 mg BID GIULIANA Administration Home Medications Medication Instructions Recorded NK [No Known Home Medication] 03/21/19 XR: clear lungs/pleura Assessment and plan: Patient is a 53 yo M with PMHx of CHF , COPD as per patient , OA, EtOH abuse, heroin abuse, and cocaine abuse who presents from [facility] for evaluation of acute chest pain that lasted for 3 hours. Patient admits to using cocaine. # Acute chest pain r/o ACS : CE negative as per cardio to Tx to med surge s/p ASA in ED, cardio consult dr. Dupont appreciated, lipid panel, A1C, TSH, echo ordered, as per cardio need echo.since had ekg changes nonspecific with hx of polysubstance abuse. # Polysubstance abuse : monitor for withdrawal , detox consult , ativan prn , seizure, fall and aspiration precautions, thiamine and folic acid ,replete lytes prn # YUMIKO: IVF /oral hydration # HTN - on Norvasc contine DVT Px: Heparin
[2019-03-23] MEDS ORDERED: CELECOXIB 100 MG CAPSULE PO PRN (13:59)
[2019-03-23] MEDS ORDERED: PT OWN MED DRAWER 7, Y5N ONE (18:30)
[2019-03-23] MEDS ORDERED: traZODone HCL 50 MG TABLET (FP) ONE (22:31)
[2019-03-23] MEDS: traZODone HCL 100 MG TABLET (FP) PO PRN (22:37)
[2019-03-24] MEDS: HEPARIN NA (PORCINE) 5,000 UNITS/ML 1ML VIAL SQ SCH ×3 (05:54→21:52)
[2019-03-24 08:16] LABS: CALCIUM 8.8 mg/dL (8.5-10.1); CREATININE 1.7 mg/dL (0.55-1.3); POTASSIUM 4.5 mmol/L (3.5-5.1)
[2019-03-24] MEDS: FOLIC ACID 1 MG TABLET (FP) PO SCH (10:11)
[2019-03-24] MEDS: amLODIPine BESYLATE 5 MG TABLET (FP) PO SCH (10:11)
[2019-03-24] MEDS: THIAMINE HCL 100 MG TABLET (FP) PO SCH ×2 (10:11→21:48)
--- NOTE | 2019-03-24 11:59 | PN ---
Progress Note, Physician Chief Complaint: sob History of Present Illness: breathing still a little short/restricted off and on. no more cp no swelling no palpit - Current Medication List Current Medications: Active Medications Acetaminophen (Tylenol -) 650 mg PO Q4H PRN PRN Reason: PAIN LEVEL 6-10 Last Admin: 03/22/19 12:19 Dose: 650 mg Amlodipine Besylate (Norvasc -) 5 mg PO DAILY COUNTS INCLUDE 234 BEDS AT THE [facility] Last Admin: 03/24/19 10:11 Dose: 5 mg Celecoxib (Celebrex -) 100 mg PO BID PRN PRN Reason: PAIN Folic Acid (Folic Acid -) 1 mg PO DAILY COUNTS INCLUDE 234 BEDS AT THE [facility] Last Admin: 03/24/19 10:11 Dose: 1 mg Heparin Sodium (Porcine) (Heparin -) 5,000 unit SQ TID COUNTS INCLUDE 234 BEDS AT THE [facility] Last Admin: 03/24/19 05:54 Dose: Not Given Ketorolac Tromethamine (Toradol Injection -) 15 mg IVPUSH Q6H PRN PRN Reason: PAIN LEVEL 6-10 Stop: 03/27/19 00:58 Last Admin: 03/23/19 22:41 Dose: 15 mg Thiamine HCl (Vitamin B1 -) 100 mg PO BID COUNTS INCLUDE 234 BEDS AT THE [facility] Last Admin: 03/24/19 10:11 Dose: 100 mg Trazodone HCl (Desyrel -) 200 mg PO HS PRN PRN Reason: INSOMNIA Last Admin: 03/23/19 22:37 Dose: 200 mg - Objective Vital Signs: Vital Signs Temperature 97.8 F 03/24/19 06:00 Pulse Rate 69 03/24/19 06:00 Respiratory Rate 20 03/24/19 06:00 Blood Pressure 131/74 03/24/19 06:00 O2 Sat by Pulse Oximetry (%) 100 03/24/19 04:00 Constitutional: Yes: Well Nourished, No Distress, Calm Cardiovascular: Yes: Regular Rate and Rhythm, S1, S2. No: Gallop, Murmur Respiratory: Yes: Regular, CTA Bilaterally. No: Accessory Muscle Use, Rales, Wheezes Extremities: No: Cold Edema: No Neurological: Yes: Alert, Oriented Psychiatric: No: Agitated Labs: CBC, BMP 03/22/19 05:56 03/24/19 07:30 Assessment/Plan ECG #1 (03/21, 18:00): NSR, LAFB, YEYO. nonsp ST-Ts infer and lateral leads ECG #2 (03/21, 22:17): NSR, LAFB, YEYO. NSST-Ts inferior and lateral leads, now involving V5/6 as well (new TWIs here) ECG #3 (03/22): NSR, no signif change (V5 TWI now upright) CXR: clear lungs/pleura chest pain, abnormal ECG: -trop neg x 3 -his pain is costochondritis and he has no ACS--rec prn ibuprofen -nonspecific change on serial ECGs, suspect these ecg variations are nonspecific finding related to underlying LVH (though voltages not high) and/or to CHF. CHF, ? type: -no details, pt reports prior hx treated by outside cardio cardiomegaly on CXR, nonsp ECG changes--? underlying hypertensive heart dz. -currently with mild sob. euvolemic appearing with clear cxr--? mild volume up. -given lasix 40 IV trial on 03/22--creat stable, bun up slightly -03/23: sob sx's equivocal for HF related (no other signs of chf... ? withdrawal sx). repeat lasix 40 IV x 1 today. reassess labs tomorrow, ? po maintenance lasix vs hold -03/24: appears euvolemic, labs a bit dry. ongoing mild sob at times--this is clearly not CHF sx. no more lasix. observe clinically -echo tomorrow HTN: -started amlodipine here -bp controlled -same meds polysubstance abuse: -per hospitalist
--- NOTE | 2019-03-24 18:21 | PN ---
Progress Note (short form) - Note Progress Note: patient is comfortable with no acute distress, having difficulty with ambulation. Vital Signs Temperature 98.4 F 03/24/19 14:00 Pulse Rate 105 H 03/24/19 14:00 Respiratory Rate 21 H 03/24/19 14:00 Blood Pressure 137/68 03/24/19 14:00 O2 Sat by Pulse Oximetry (%) 100 03/24/19 12:00 GENERAL: Awake, alert, and fully oriented, in mild acute distress. HEAD: Normal with no signs of trauma. EYES: extraocular movements intact, sclera anicteric, conjunctiva clear. EARS, NOSE, THROAT: oropharynx clear without exudates. Moist mucous membranes. NECK: Normal range of motion, supple without lymphadenopathy, JVD, or masses. LUNGS: CTAB HEART: RRR normal S1 and S2 without murmur, rub or gallop. ABDOMEN: Soft, NT,ND, normoactive bowel sounds, no guarding, no rebound, no masses. No hepatomegaly or splenomegaly. MUSCULOSKELETAL: Normal range of motion at all joints. No bony deformities or tenderness. No CVA tenderness. EXTREMITIES: 2+ pulses, warm, well-perfused. No calf tenderness. No peripheral edema. dry skin. NEUROLOGICAL: Cranial nerves II-XII intact. Normal speech. PSYCHIATRIC: Cooperative. Good eye contact. Appropriate mood and affect. SKIN: Warm, dry, normal turgor, no rashes or lesions noted, normal capillary refill. CBCD WBC 5.2 K/mm3 (4.0-10.0) 03/22/19 05:56 RBC 3.74 M/mm3 (4.00-5.60) L 03/22/19 05:56 Hgb 11.5 GM/dL (11.7-16.9) L 03/22/19 05:56 Hct 34.8 % (35.4-49) L 03/22/19 05:56 MCV 93.1 fl (80-96) 03/22/19 05:56 MCHC 33.2 g/dl (32.0-35.9) 03/22/19 05:56 RDW 13.5 % (11.9-15.9) 03/22/19 05:56 Plt Count 158 K/MM3 (134-434) 03/22/19 05:56 MPV 9.2 fl (7.5-11.1) 03/22/19 05:56 CMP Sodium 140 mmol/L (136-145) 03/24/19 07:30 Potassium 4.5 mmol/L (3.5-5.1) 03/24/19 07:30 Chloride 106 mmol/L (98-107) 03/24/19 07:30 Carbon Dioxide 28 mmol/L (21-32) 03/24/19 07:30 Anion Gap 6 MMOL/L (8-16) L 03/24/19 07:30 BUN 34 mg/dL (7-18) H 03/24/19 07:30 Creatinine 1.7 mg/dL (0.55-1.3) H 03/24/19 07:30 Random Glucose 91 mg/dL (74-106) 03/24/19 07:30 Calcium 8.8 mg/dL (8.5-10.1) 03/24/19 07:30 Total Bilirubin 0.3 mg/dL (0.2-1) 03/22/19 05:56 AST 13 U/L (15-37) L 03/22/19 05:56 ALT 15 U/L (13-61) 03/22/19 05:56 Alkaline Phosphatase 77 U/L (45-117) 03/22/19 05:56 Total Protein 6.0 g/dl (6.4-8.2) L 03/22/19 05:56 Albumin 2.8 g/dl (3.4-5.0) L 03/22/19 05:56 CARDIAC ENZYMES Troponin I 0.02 ng/ml (0.00-0.05) 03/22/19 05:56 Current Medications Generic Name Dose Route Start Last Admin Trade Name Freq PRN Reason Stop Dose Admin Acetaminophen 650 mg 03/22/19 00:59 03/22/19 12:19 Tylenol - PO 650 mg Q4H PRN Administration PAIN LEVEL 6-10 Amlodipine Besylate 5 mg 03/23/19 10:00 03/24/19 10:11 Norvasc - PO 5 mg DAILY GIULIANA Administration Celecoxib 100 mg 03/23/19 13:59 Celebrex - PO BID PRN PAIN Folic Acid 1 mg 03/22/19 10:00 03/24/19 10:11 Folic Acid - PO 1 mg DAILY GIULIANA Administration Heparin Sodium (Porcine) 5,000 unit 03/23/19 19:46 03/24/19 14:22 Heparin - SQ 5,000 unit TID GIULIANA Administration Ketorolac Tromethamine 15 mg 03/22/19 04:17 03/23/19 22:41 Toradol Injection - IVPUSH 03/27/19 00:58 15 mg Q6H PRN Administration PAIN LEVEL 6-10 Thiamine HCl 100 mg 03/22/19 10:00 03/24/19 10:11 Vitamin B1 - PO 100 mg BID GIULIANA Administration Trazodone HCl 200 mg 03/23/19 13:59 03/23/19 22:37 Desyrel - PO 200 mg HS PRN Administration INSOMNIA Home Medications Medication Instructions Recorded NK [No Known Home Medication] 03/21/19 XR: clear lungs/pleura Assessment and plan: Patient is a 53 yo M with PMHx of CHF , COPD as per patient , OA, EtOH abuse, heroin abuse, and cocaine abuse who presents from [facility] for evaluation of acute chest pain that lasted for 3 hours. Patient admits to using cocaine. # Acute chest pain r/o ACS : CE negative , cardio consult dr. Dupont appreciated , echo ordered for am ,on admission patient had ekg changes nonspecific with hx of polysubstance abuse. # Polysubstance abuse: no withdrawal symptoms , detox consult , ativan prn , seizure, fall and aspiration precautions, thiamine and folic acid ,replete lytes prn # YUMIKO: IVF/oral hydration # HTN - on Norvasc contine DVT Px: Heparin Visit type - Emergency Visit Emergency Visit: Yes ED Registration Date: 03/22/19 Care time: The patient presented to the Emergency Department on the above date and was hospitalized for further evaluation of their emergent condition. - New Patient This patient is new to me today: No - Critical Care Critical Care patient: No - Discharge Referral Referred to [facility] No
[2019-03-24] MEDS: KETOROLAC TROMETHAMINE 30 MG/1 ML VIAL IVPUSH PRN (19:35)
[2019-03-24] MEDS ORDERED: ACETAMINOPHEN 325 MG TABLET (FP) PO PRN (20:20)
[2019-03-24] MEDS ORDERED: KETOROLAC TROMETHAMINE 30 MG/1 ML VIAL IVPUSH PRN (20:20)
[2019-03-24] MEDS ORDERED: traZODone HCL 50 MG TABLET (FP) ONE (21:39)
[2019-03-24] MEDS: traZODone HCL 100 MG TABLET (FP) PO PRN (21:48)
[2019-03-25] MEDS: HEPARIN NA (PORCINE) 5,000 UNITS/ML 1ML VIAL SQ SCH ×2 (05:50→14:01)
[2019-03-25 06:08] VITALS: TEMP 98.2
[2019-03-25] MEDS ORDERED: PT OWN MED DRAWER 7, Y5N ONE (06:23)
[2019-03-25 08:49] LABS: CALCIUM 8.6 mg/dL (8.5-10.1); CREATININE 1.5 mg/dL (0.55-1.3); POTASSIUM 4.4 mmol/L (3.5-5.1)
[2019-03-25] MEDS ORDERED: FOLIC ACID 1 MG TABLET (FP) PO SCH (10:00)
[2019-03-25] MEDS: THIAMINE HCL 100 MG TABLET (FP) PO SCH (10:24)
[2019-03-25] MEDS: amLODIPine BESYLATE 5 MG TABLET (FP) PO SCH (10:25)
[2019-03-25 12:17] VITALS: BP 132/76; PULSE 79
--- NOTE | 2019-03-25 12:49 | ECHO ---
Version: 1 Name: SOLEDAD CABRAL Exam: Adult Echocardiogram Study Date: 03/25/2019, 11:17 AM Age: 53 Years MMode/2D Measurements & Calculations IVSd: 1.07 cm LVIDs: 4.1 cm LVIDd: 5.6 cm LVPWd: 1.05 cm LVOT diam: 2.21 cm Ao root diam: 3.0 cm LA dimension: 3.9 cm Doppler Measurements & Calculations MV E max romero: 62.2 cm/sec Med E/e': 10.7 MV A max romero: 101.7 cm/sec Med Peak E' Romero: 5.8 cm/sec MV E/A: 0.61 Lat E/e': 10.9 Lat Peak E' Romero: 5.7 cm/sec MR max P.1 mmHg Ao max P.2 mmHg HARVEY(I,D): 1.48 cm Ao mean P.5 mmHg LV V1 mean: 44.5 cm/sec Ao V2 max: 160.0 cm/sec LV V1 mean P.92 mmHg TR max romero: 259.6 cm/sec TR max P.1 mmHg Left Ventricle The left ventricular size, thickness and function are normal. Abnormal diastolic relaxation. Right Ventricle The right ventricle is normal in size and function. Atria Normal left and right atrial size and function. Mitral Valve The mitral valve is grossly normal. Tricuspid Valve The tricuspid valve is not well visualized, but is grossly normal. There is mild tricuspid regurgita tion. Aortic Valve The aortic valve is normal in structure and function. Pulmonic Valve The pulmonic valve leaflets are thin and pliable; valve motion is normal. Great Vessels The aortic root is normal size. Summary Statements The left ventricular size, thickness and function are normal The right ventricle is normal in size and function. Normal left and right atrial size and function. The mitral valve is grossly normal. There is mild tricuspid regurgitation. The aortic valve is normal in structure and function. The aortic root is normal size. EF 53% PASP 41 Mild pulmonary HTN MD Jerry Perdue 03/25/2019, 11:48 AM Ordering Physician: MADHU CAM Referring Physician: MARIA GUADALUPE STANLEY Performed By: Laura Clements
--- NOTE | 2019-03-25 14:06 | PN ---
Teaching Attending Note Name of Resident: Brennan Salazar ATTENDING PHYSICIAN STATEMENT I saw and evaluated the patient. I reviewed the resident's note and discussed the case with the resident. I agree with the resident's findings and plan as documented. SUBJECTIVE: Patient is comfortable with no acute distress. no headache, no nausea or vomiting. OBJECTIVE: Vital Signs Temperature 98.2 F 03/25/19 10:00 Pulse Rate 79 03/25/19 10:00 Respiratory Rate 18 03/25/19 10:00 Blood Pressure 132/76 03/25/19 10:00 O2 Sat by Pulse Oximetry (%) 100 03/25/19 04:15 Initial Vital Signs Temp Pulse Resp BP Pulse Ox 97.9 F 92 H 18 138/82 100 03/21/19 20:43 03/21/19 20:43 03/21/19 20:43 03/21/19 20:43 03/21/19 20:43 GENERAL: Awake, alert, and fully oriented, in mild acute distress. HEAD: Normal with no signs of trauma. EYES: extraocular movements intact, sclera anicteric, conjunctiva clear. EARS, NOSE, THROAT: oropharynx clear without exudates. Moist mucous membranes. NECK: Normal range of motion, supple without lymphadenopathy, JVD, or masses. LUNGS: CTAB HEART: RRR normal S1 and S2 without murmur, rub or gallop. ABDOMEN: Soft, NT,ND, normoactive bowel sounds, no guarding, no rebound, no masses. No hepatomegaly or splenomegaly. MUSCULOSKELETAL: Normal range of motion at all joints. No bony deformities or tenderness. No CVA tenderness. EXTREMITIES: 2+ pulses, warm, well-perfused. No calf tenderness. No peripheral edema. dry skin. NEUROLOGICAL: Cranial nerves II-XII intact. Normal speech. PSYCHIATRIC: Cooperative. Good eye contact. Appropriate mood and affect. SKIN: Warm, dry, normal turgor, no rashes or lesions noted, normal capillary refill. CBCD WBC 5.2 K/mm3 (4.0-10.0) 03/22/19 05:56 RBC 3.74 M/mm3 (4.00-5.60) L 03/22/19 05:56 Hgb 11.5 GM/dL (11.7-16.9) L 03/22/19 05:56 Hct 34.8 % (35.4-49) L 03/22/19 05:56 MCV 93.1 fl (80-96) 03/22/19 05:56 MCHC 33.2 g/dl (32.0-35.9) 03/22/19 05:56 RDW 13.5 % (11.9-15.9) 03/22/19 05:56 Plt Count 158 K/MM3 (134-434) 03/22/19 05:56 MPV 9.2 fl (7.5-11.1) 03/22/19 05:56 CMP Sodium 140 mmol/L (136-145) 03/25/19 07:45 Potassium 4.4 mmol/L (3.5-5.1) 03/25/19 07:45 Chloride 108 mmol/L (98-107) H 03/25/19 07:45 Carbon Dioxide 26 mmol/L (21-32) 03/25/19 07:45 Anion Gap 6 MMOL/L (8-16) L 03/25/19 07:45 BUN 36 mg/dL (7-18) H 03/25/19 07:45 Creatinine 1.5 mg/dL (0.55-1.3) H 03/25/19 07:45 Random Glucose 93 mg/dL (74-106) 03/25/19 07:45 Calcium 8.6 mg/dL (8.5-10.1) 03/25/19 07:45 Total Bilirubin 0.3 mg/dL (0.2-1) 03/22/19 05:56 AST 13 U/L (15-37) L 03/22/19 05:56 ALT 15 U/L (13-61) 03/22/19 05:56 Alkaline Phosphatase 77 U/L (45-117) 03/22/19 05:56 Total Protein 6.0 g/dl (6.4-8.2) L 03/22/19 05:56 Albumin 2.8 g/dl (3.4-5.0) L 03/22/19 05:56 CARDIAC ENZYMES Troponin I 0.02 ng/ml (0.00-0.05) 03/22/19 05:56 Current Medications Generic Name Dose Route Start Last Admin Trade Name Freq PRN Reason Stop Dose Admin Acetaminophen 650 mg 03/24/19 20:20 Tylenol - PO Q4H PRN PAIN LEVEL 6-10 Amlodipine Besylate 5 mg 03/23/19 10:00 03/25/19 10:25 Norvasc - PO 5 mg DAILY GIULIANA Administration Celecoxib 100 mg 03/23/19 13:59 03/24/19 21:49 Celebrex - PO 100 mg BID PRN Administration PAIN Folic Acid 1 mg 03/25/19 10:00 03/25/19 10:25 Folic Acid - PO 1 mg DAILY GIULIANA Administration Heparin Sodium (Porcine) 5,000 unit 03/23/19 19:46 03/25/19 14:01 Heparin - SQ 5,000 unit TID GIULIANA Administration Thiamine HCl 100 mg 03/24/19 22:00 03/25/19 10:24 Vitamin B1 - PO 100 mg BID GIULIANA Administration Trazodone HCl 200 mg 03/23/19 13:59 03/24/19 21:48 Desyrel - PO 200 mg HS PRN Administration INSOMNIA Home Medications Medication Instructions Recorded Amlodipine Besylate [Norvasc -] 5 mg PO DAILY 30 Days #30 tablet 03/25/19 traZODone HCL [Desyrel -] 200 mg PO HS PRN tablet 03/25/19 Laboratory Tests 03/21/19 03/22/19 03/22/19 21:05 05:56 05:56 Creatinine 1.4 H 1.3 Hemoglobin A1c % Phosphorus 2.2 L Triglycerides 146 Cholesterol 116 Total LDL Cholesterol 57 HDL Cholesterol 41 03/22/19 03/23/19 03/24/19 05:56 06:25 07:30 Creatinine 1.4 H 1.7 H Hemoglobin A1c % 5.6 Phosphorus Triglycerides Cholesterol Total LDL Cholesterol HDL Cholesterol 03/25/19 07:45 Creatinine 1.5 H Hemoglobin A1c % Phosphorus Triglycerides Cholesterol Total LDL Cholesterol HDL Cholesterol XR: clear lungs/pleura Assessment and plan: Patient is a 53yo M with PMHx of CHF ,COPD as per patient , OA, EtOH abuse, heroin abuse, and cocaine abuse who presents from [facility] for evaluation of acute chest pain that lasted for 3 hours. Patient admits to using cocaine. # Acute chest pain r/o ACS : CE negative, lipid panel as above, A1C as above, echo done : EJF of 57%, with mild pulmonary HTN, follow with cardio as well # Polysubstance abuse : no withdrawal noted, detox consult , ativan prn , seizure, fall and aspiration precautions, thiamine and folic acid ,replete lytes prn # YUMIKO: IVF /oral hydration # HTN - on Norvasc continue DVT Px: Heparin
--- NOTE | 2019-03-25 14:12 | DS ---
Physical Exam: SUBJECTIVE: Patient seen and examined at bedside. complains of pain in legs, knees, chest pain improved w/ NSAIDS. No other complaints. No ANGEL, nausea, vomiting, diarrhea. OBJECTIVE: Vital Signs Period Temp Pulse Resp BP Sys/Craig Pulse Ox Last 24 Hr 98 F-98.7 F 78-98 18-19 132-139/68-79 100-100 PHYSICAL EXAM GENERAL: Awake, alert, and fully oriented, in mild acute distress. HEAD: Normal with no signs of trauma. EYES: extraocular movements intact, sclera anicteric, conjunctiva clear. No lid lag. EARS, NOSE, THROAT: nares patent, oropharynx clear without exudates. Moist mucous membranes. NECK: Normal range of motion, supple without lymphadenopathy, JVD, or masses. LUNGS: CTAB HEART: RRR normal S1 and S2 without murmur, rub or gallop. TTP left chest wall. ABDOMEN: Soft, nontender, not distended, normoactive bowel sounds, no guarding, no rebound, no masses. No hepatomegaly or splenomegaly. MUSCULOSKELETAL: Normal range of motion at all joints. No bony deformities or tenderness. No CVA tenderness. UPPER EXTREMITIES: 2+ pulses, warm, well-perfused. No cyanosis. No clubbing. No peripheral edema. LOWER EXTREMITIES: 2+ pulses, warm, well-perfused. No calf tenderness. No peripheral edema. Dystrophic and unkempt toe nails, flaky dry skin in both legs , no ulcers noted NEUROLOGICAL: Cranial nerves II-XII intact. Normal speech. PSYCHIATRIC: Cooperative. Good eye contact. Appropriate mood and affect. SKIN: Warm, dry, normal turgor, no rashes or lesions noted, normal capillary refill. LABS Laboratory Results - last 24 hr 03/25/19 07:45 Sodium 140 Potassium 4.4 Chloride 108 H Carbon Dioxide 26 Anion Gap 6 L BUN 36 H Creatinine 1.5 H Est GFR (CKD-EPI)AfAm 60.30 Est GFR (CKD-EPI)NonAf 52.03 Random Glucose 93 Calcium 8.6 ECHO Summary Statements The left ventricular size, thickness and function are normal The right ventricle is normal in size and function. Normal left and right atrial size and function. The mitral valve is grossly normal. There is mild tricuspid regurgitation. The aortic valve is normal in structure and function. The aortic root is normal size. EF 53% PASP 41 Mild pulmonary HTN MD Jerry Perdue 03/25/2019, 11:48 AM ECG #1 (03/21, 18:00): NSR, LAFB, YEYO. nonsp ST-Ts infer and lateral leads ECG #2 (03/21, 22:17): NSR, LAFB, YEYO. NSST-Ts inferior and lateral leads, now involving V5/6 as well (new TWIs here) ECG #3 (03/22): NSR, no signif change (V5 TWI now upright) CXR shows cardiomegaly with obscured right CP angle. HOSPITAL COURSE: Date of Admission:03/22/19 Date of Discharge: 03/25/19 53 yo M with PMH of CHF (pt reported), COPD (pt reported), OA, EtOH abuse, heroin abuse, and cocaine abuse who presents from [facility] for evaluation of 3- 4 hours of sharp non radiating constant initially substernal but now L sided 8/ 10 chest pain, associated with mild SOB, and is not alleviated by anything that he can identify. Admitted for Atypical Chest pain, r/o ACS w/ new EKG changes - ECG w/ NSR; HR 75 ; NSR, LAFB, YEYO. nonsp ST-Ts inferior and lateral leads, now involving V5/6 as well (new TWIs here) when compared to prior ECG at [facility]. /p ASA 324 PO in ED. Trop negx3. cardio consulted, gitig. monitored on tele w/o events. Echo reviewed above (EF 53%,milld pulmonary HTN) pt pain improved w/ toradol tylenol. pt pain is reproducible and in the setting of pushing himself up from his chair with his arms and neg cardiac w/u pain likely 2/2 muscle strain/ costochondritis. Utox pos for cocaine (can be pos for up to 2 wks in chronic user) and benzo. A1C 5.6, TSH nl, lipid panel nl (LDL 57, ASCVD 18%, pt will need close outpt cardio and PCP f/u to discuss the about whether statin therapy is indicated) #YUMIKO? vs CKD? - Cr 1.4, may be at baseline. pt will f/u outpt nephro #Mild Normorcytic Anemia - Cause unclear. may be 2/2 CKD? reticulocyte count, iron studies, folate, B12 nl #HTN - pt says he used to take lisinopril pt started on norvasc 5 qd and will cont at dc pt to f/u outpt for BP med adjustment #Alcohol/Drug abuse - no signs of active withdrawal s/p thiamine and folic acid pt stable and ready for dc w/ appropriate f/u Minutes to complete discharge: 38 Discharge Summary Reason For Visit: COCAINE DEPENDENCE/HEROIN ABUSE/CHRONIC OBSTRUCTIV Current Active Problems Alcohol abuse (Acute) CHF (congestive heart failure) (Acute) COPD (chronic obstructive pulmonary disease) (Acute) Chest pain (Acute) Heroin abuse (Acute) Cocaine dependence (Chronic) Condition: Stable - Instructions Diet, Activity, Other Instructions: you came in for chest pain. you did not have a heart attack. you have costochondritis please resume your home meds please take norvasc 5mg once a day for your blood pressure Please refrain from using cocaine as this can put you at risk for a heart attack please follow up with your primary care physician within 1 week and discuss whether you should be on any cholesterol meds please follow up with instructional systems designer Dr Dupont with in 1 week about your echo results and for any further out patient cardiac work up and med adjustments for your heart please follow up with content designer Dr Arzola within 1 week. you may have kidney disease if you have worsening chest pain or shortness pf breath please call 911 or go to the ER Referrals: Kal Dupont MD [Staff Physician] - 1 Week Alexander Arzola MD [Staff Physician] - 1 Week Disposition: HOME - Home Medications Comprehensive Discharge Medication List: Ambulatory Orders Amlodipine Besylate [Norvasc -] 5 mg PO DAILY 30 Days #30 tablet 03/25/19 traZODone HCL [Desyrel -] 200 mg PO HS PRN tablet 03/25/19 This patient is new to me today: Yes Date on this admission: 03/25/19 Emergency Visit: Yes ED Registration Date: 03/22/19 Care time: The patient presented to the Emergency Department on the above date and was hospitalized for further evaluation of their emergent condition. Critical Care patient: No - Discharge Referral Referred to [facility] Med P.C.: No
--- NOTE | 2019-03-25 14:39 | PN ---
Progress Note (short form) - Note Progress Note: Chief Complaint: sob History of Present Illness: breathing still a little short/restricted off and on. laying flat w/o sob no more cp no swelling no palpit - Current Medication List Current Medications Generic Name Dose Route Start Last Admin Trade Name Freq PRN Reason Stop Dose Admin Acetaminophen 650 mg 03/24/19 20:20 Tylenol - PO Q4H PRN PAIN LEVEL 6-10 Amlodipine Besylate 5 mg 03/23/19 10:00 03/25/19 10:25 Norvasc - PO 5 mg DAILY GIULIANA Administration Celecoxib 100 mg 03/23/19 13:59 03/24/19 21:49 Celebrex - PO 100 mg BID PRN Administration PAIN Folic Acid 1 mg 03/25/19 10:00 03/25/19 10:25 Folic Acid - PO 1 mg DAILY GIULIANA Administration Heparin Sodium (Porcine) 5,000 unit 03/23/19 19:46 03/25/19 14:01 Heparin - SQ 5,000 unit TID GIULIANA Administration Thiamine HCl 100 mg 03/24/19 22:00 03/25/19 10:24 Vitamin B1 - PO 100 mg BID GIULIANA Administration Trazodone HCl 200 mg 03/23/19 13:59 03/24/19 21:48 Desyrel - PO 200 mg HS PRN Administration INSOMNIA - Objective Vital Signs: Vital Signs Period Temp Pulse Resp BP Sys/Craig Pulse Ox Last 24 Hr 98 F-98.7 F 78-98 18-19 132-139/68-79 100-100 Constitutional: Yes: Well Nourished, No Distress, Calm Cardiovascular: Yes: Regular Rate and Rhythm, S1, S2. No: Gallop, Murmur Respiratory: Yes: Regular, CTA Bilaterally. No: Accessory Muscle Use, Rales, Wheezes Extremities: No: Cold Edema: No Neurological: Yes: Alert, Oriented Psychiatric: No: Agitated no diaphoresis jaundice Labs: CBC, BMP 03/22/19 05:56 03/25/19 07:45 Assessment/Plan ECG #1 (03/21, 18:00): NSR, LAFB, YEYO. nonsp ST-Ts infer and lateral leads ECG #2 (03/21, 22:17): NSR, LAFB, YEYO. NSST-Ts inferior and lateral leads, now involving V5/6 as well (new TWIs here) ECG #3 (03/22): NSR, no signif change (V5 TWI now upright) CXR: clear lungs/pleura echo 02/2019: nl lv/rv, mild tr, mild phtn chest pain, abnormal ECG: -trop neg x 3 -his pain is costochondritis and he has no ACS--rec prn ibuprofen -nonspecific change on serial ECGs, suspect these ecg variations are nonspecific finding related to underlying LVH (though voltages not high) and/or to CHF. chronic diastolic CHF: -no details, pt reports prior hx treated by outside cardio -echo here with nl lvef, no sig valve path -cardiomegaly on CXR, nonsp ECG changes--? underlying hypertensive heart dz. -presented with mild sob. euvolemic appearing with clear cxr--? mild volume up. -given lasix 40 IV trial on 03/22--creat stable, bun up slightly -03/23: sob sx's equivocal for HF related (no other signs of chf... ? withdrawal sx). repeat lasix 40 IV x 1 today. reassess labs tomorrow, ? po maintenance lasix vs hold -03/24-: appears euvolemic. ongoing mild sob at times--this is clearly not CHF sx. no more lasix for now. pt will f/u with his building illuminating engineer at [place] in 1 week after dc. HTN: -started amlodipine here -bp controlled -same meds polysubstance abuse: -per hospitalist
== END 2019-03-25 15:56 | disposition home or self-care (01) ==
LOC: JER 20:18 → INTOOBSV 03-22 00:23 → JERBED 03-22 00:23 → J4S 03-22 02:08 → J6S 03-23 22:28
PROVIDERS: ADMIT Internal Medicine; ATTEND Internal Medicine
PROC: 3E0333Z Introduction of Anti-inflammatory into Peripheral Vein, Percutaneous Approach (ICD-10-PCS; principal; 2019-03-22)
PROC: 3E033GC Introduction of Other Therapeutic Substance into Peripheral Vein, Percutaneous Approach (ICD-10-PCS; 2019-03-22)
PROC: 3E013GC Introduction of Other Therapeutic Substance into Subcutaneous Tissue, Percutaneous Approach (ICD-10-PCS; 2019-03-22)
PROC: 3E0F7GC Introduction of Other Therapeutic Substance into Respiratory Tract, Via Natural or Artificial Opening (ICD-10-PCS; 2019-03-22)
DX: R07.89 Other chest pain (principal); I11.0 Hypertensive heart disease with heart failure; I50.9 Heart failure, unspecified; J44.9 Chronic obstructive pulmonary disease, unspecified; M19.90 Unspecified osteoarthritis, unspecified site; F10.10 Alcohol abuse, uncomplicated; F11.10 Opioid abuse, uncomplicated; F14.10 Cocaine abuse, uncomplicated; E88.09 Other disorders of plasma-protein metabolism, not elsewhere classified; F17.210 Nicotine dependence, cigarettes, uncomplicated; D64.9 Anemia, unspecified
CPT/HCPCS: 36415; 71045-TC-FY; 80048; 80053; 80061; 80307; 82607; 82728; 82746; 83036; 83540; 83550; 83721; 83735; 83880; 84100; 84443; 84484; 85025; 85044; 93005; 93010; 93306-TC; 94640; 96372; 96374; 96375; 96376; 97116-GP; 97162-GP; 99283-25; G0378; J1644

== ENCOUNTER 2019-07-19 13:06 | Inpatient (IN) | payer OTHER ==
[2019-07-19 13:40] VITALS: BMI 29.5
--- NOTE | 2019-07-19 16:07 | HP ---
COWS - Scale Resting Pulse: 1= [place] 81-100 Sweatin= Chills/Flushing Restless Observation: 1= Difficult to Sit Still Pupil Size: 0= Normal to Room Light Bone or Joint Aches: 2= Severe Diffuse Aches Runny Nose/ Eye Tearin= Runny Nose/Eyes GI Upset > 30mins: 3= Vomiting/Diarrhea Tremor Observation: 2= Slight Tremor Visible Yawning Observation: 2= >3x During Session Anxiety or Irritability: 2=Irritable/Anxious Goose Flesh Skin: 3=Piloerection COWS Score: 19 CIWA Score Nausea/Vomitin Muscle Tremors: 2 Anxiety: 2 Agitation: 2 Paroxysmal Sweats: 2 Orientation: 0-Oriented Tacttile Disturbances: 2-Mild Itch/Numbness/Burn Auditory Disturbances: 0-None Visual Disturbances: 2-Mild Sensitivity Headache: 1-Very Mild CIWA-Ar Total Score: 15 - Admission Criteria [facility]ASAS Guidelines: Admission for Medically Managed Detox: Requires at least one of the followin. CIWA greater than 12 2. Seizures within the past 24 hours 3. Delirium tremens within the past 24 hours 4. Hallucinations within the past 24 hours 5. Acute intervention needed for co occurring medical disorder 6. Acute intervention needed for co occurring psychiatric disorder 7. Severe withdrawal that cannot be handled at a lower level of care (continued vomiting, continued diarrhea, abnormal vital signs) requiring intravenous medication and/or fluids 8. Patient presents the following: CIWA greater than 12 Admission Criteria Met: Admission criteria met Admission ROS [facility] Chief Complaint: I am here to detox from alcohol and heroin Allergies/Adverse Reactions: Allergies Allergy/AdvReac Type Severity Reaction Status Date / Time [facility] Allergy Verified 07/19/19 13:31 hot cereal Allergy Uncoded 07/19/19 13:31 History of Present Illness: Patient is a 53 year old man who presents for detox from alcohol and heroin, his last treatment was in February at [facility]. Patient reports use of heroin started when oxycodone for bilateral knee and bilateral hip pain was titrated to doses that was not relieving his pain. He reports last blackout was 3 weeks ago, denies any seizures. Exam Limitations: No Limitations - Ebola screening Have you traveled outside of the country in the last 21 days: No (N) Have you had contact with anyone from an Ebola affected area: No Have you been sick,other than usual withdrawal symptoms: No Do you have a fever: No - Review of Systems Constitutional: Chills, Loss of Appetite, Changes in sleep EENT: reports: Blurred Vision, Nose Congestion Respiratory: reports: Cough Cardiac: reports: Lightheadedness GI: reports: Diarrhea, Nausea, Poor Appetite, Poor Fluid Intake, Vomiting : reports: No Symptoms Reported Musculoskeletal: reports: Back Pain, Joint Pain, Muscle Pain, Muscle Weakness Integumentary: reports: Flushing Neuro: reports: Headache, Numbness, Tremors, Weakness, Unsteady Gait Endocrine: reports: No Symptoms Reported Hematology: reports: No Symptoms Reported Psychiatric: reports: Anxious, Depressed Other Systems: Reviewed and Negative Patient History - Patient Medical History Hx Anemia: No Hx Asthma: No Hx Chronic Obstructive Pulmonary Disease (COPD): Yes Hx Cancer: No Hx Cardiac Disorders: No Hx Congestive Heart Failure: Yes Hx Hypertension: No Hx Hypercholesterolemia: Yes Hx Pacemaker: No HX Cerebrovascular Accident: No Hx Seizures: No Hx Dementia: No Hx Diabetes: No Hx Gastrointestinal Disorders: Yes (GERD) Hx Liver Disease: No Hx Genitourinary Disorders: No Hx Sexually Transmitted Disorders: No Hx Renal Disease (ESRD): No Hx Thyroid Disease: No Hx Human Immunodeficiency Virus (HIV): No Hx Hepatitis C: No Hx Depression: Yes Hx Suicide Attempt: No Hx Bipolar Disorder: Yes (with PTSD) Hx Schizophrenia: No Other Medical History: Anxiety - Patient Surgical History Past Surgical History: Yes Hx Orthopedic Surgery: Yes (left elbow) Anesthesia Reaction: No - PPD History Previous Implant?: Yes Documented Results: Negative w/proof Implanted On Prior R Admission?: Yes Date: 03/20/19 Results: Negative PPD to be Administered?: No - Smoking Cessation Smoking history: Current every day smoker Have you smoked in the past 12 months: Yes Aproximately how many cigarettes per day: 7 Hx Chewing Tobacco Use: No Initiated information on smoking cessation: Yes 'Breaking Loose' booklet given: 07/19/19 - Substances abused Alcohol Substance route: Oral Frequency: 3-6 times per week Amount used: 3-240Z bEER Age of first use: 11 Date of last use: 07/18/19 Heroin Substance route: Inhalation Frequency: Daily Amount used: 2-3BAGS Age of first use: 52 Date of last use: 07/18/19 Cocaine Substance route: Inhalation Frequency: Daily Amount used: 1 GRAM Age of first use: 17 Date of last use: 07/17/19 Admission Physical Exam S - Vital Signs Vital Signs: Vital Signs - 24 hr 07/19/19 13:35 Temperature 98.3 F Pulse Rate 91 H Respiratory 18 Rate Blood Pressure 161/96 - Physical General Appearance: Yes: No Apparent Distress HEENTM: Yes: EOMI, Hearing grossly Normal, Normocephalic, Nasal Congestion Respiratory: Yes: Chest Non-Tender, Lungs Clear, Normal Breath Sounds, No Respiratory Distress, No Accessory Muscle Use Neck: Yes: No masses,lesions,Nodules, Supple Breast: Yes: Breast Exam Deferred Cardiology: Yes: Regular Rhythm, Regular Rate, S1, S2 Abdominal: Yes: Normal Bowel Sounds, Soft Genitourinary: Yes: Within Normal Limits Back: Yes: Normal Inspection Musculoskeletal: Yes: Back pain, Joint Stiffness, Muscle Pain, Muscle weakness Extremities: Yes: Tremors Neurological: Yes: animal husbandry teacher II-XII NML intact, Fully Oriented, Alert, Normal Mood/ Affect, Normal Response, Numbness Integumentary: Yes: Clammy Lymphatic: Yes: Within Normal Limits - Diagnostic (1) Uncomplicated alcohol dependence Current Visit: Yes Status: Acute (2) Heroin addiction Current Visit: Yes Status: Acute (3) Nicotine dependence Current Visit: Yes Status: Acute Qualifiers: Nicotine product type: cigarettes Substance use status: uncomplicated Qualified Code(s): F17.210 - Nicotine dependence, cigarettes, uncomplicated (4) GERD (gastroesophageal reflux disease) Current Visit: Yes Status: Acute Qualifiers: Esophagitis presence: without esophagitis Qualified Code(s): K21.9 - Gastro -esophageal reflux disease without esophagitis (5) CHF (congestive heart failure) Current Visit: Yes Status: Chronic Qualifiers: Heart failure type: unspecified Heart failure chronicity: chronic Qualified Code(s): I50.9 - Heart failure, unspecified (6) COPD (chronic obstructive pulmonary disease) Current Visit: No Status: Acute Qualifiers: COPD type: unspecified COPD Qualified Code(s): J44.9 - Chronic obstructive pulmonary disease, unspecified (7) Cocaine dependence Current Visit: Yes Status: Acute Qualifiers: Substance use status: uncomplicated Qualified Code(s): F14.20 - Cocaine dependence, uncomplicated (8) Knee pain, bilateral Current Visit: Yes Status: Acute (9) Hip pain, bilateral Current Visit: Yes Status: Acute Cleared for Admission [facility] - Detox or Rehab [facility] Level of Care: Medically Managed Detox Regimen/Protocol: Methadone/Valium Claeared for Rehab Admission: No Breathalyzer - Breathalyzer Breathalyzer: 0 Urine Drug Screen - Test Device Lot number: [id number] Expiration date: 03/28/21 - Control Is test valid?: Yes - Results Drug screen NEGATIVE: No Urine drug screen results: LEEANN-Cocaine, MOP-Opiates Inpatient Rehab Admission - Rehab Decision to Admit Inpatient rehab admission?: No
[2019-07-19] MEDS ORDERED: MAG HYDROX/AL HYDROX/SIMETH 30 ML UNIT-DOSE CUP PO PRN (16:18)
[2019-07-19] MEDS ORDERED: ACETAMINOPHEN 325 MG TABLET (FP) PO PRN ×2 (16:18)
[2019-07-19] MEDS ORDERED: hydrOXYzine PAMOATE 25 MG CAPSULE (FP) PO PRN (16:18)
[2019-07-19] MEDS ORDERED: NICOTINE POLACRILEX 2 MG GUM BUC PRN (16:18)
[2019-07-19] MEDS ORDERED: MAGNESIUM HYDROX 2400MG/30ML ORAL SUSPENSION 30 ML CUP PO PRN (16:18)
[2019-07-19] MEDS ORDERED: NALOXONE HCL 0.4 MG/ML VIAL IM PRN (16:18)
[2019-07-19] MEDS ORDERED: BISMUTH SUBSALICYLATE 524 MG/30 ML UD PO PRN (16:18)
[2019-07-19] MEDS ORDERED: chlordiazePOXIDE HCL 25 MG CAPSULE PO ONE (16:18)
[2019-07-19] MEDS ORDERED: MENTHOL/PHENOL 1 EACH UD MM PRN (16:18)
[2019-07-19] MEDS ORDERED: cloNIDine HCL 0.1 MG TABLET PO PRN (16:18)
[2019-07-19] MEDS ORDERED: IBUPROFEN 400 MG TABLET (FP) PO PRN (16:18)
[2019-07-19] MEDS ORDERED: chlordiazePOXIDE HCL 10 MG CAPSULE PO PRN (16:18)
[2019-07-19] MEDS ORDERED: MAGNESIUM CITRATE 300 ML BOTTLE PO PRN (16:18)
[2019-07-19] MEDS ORDERED: METHOCARBAMOL 500 MG TABLET PO PRN (16:18)
[2019-07-19] MEDS ORDERED: METHADONE HCL 10 MG TABLET (FOR DETOX USE ONLY) PO ONE (17:30)
[2019-07-19] MEDS: MELATONIN 5 MG TABLETS PO PRN (22:46)
[2019-07-19] MEDS: chlordiazePOXIDE HCL 25 MG CAPSULE PO SCH (22:46)
[2019-07-19] MEDS: THIAMINE HCL 100 MG TABLET (FP) PO SCH (22:46)
[2019-07-20] MEDS: chlordiazePOXIDE HCL 25 MG CAPSULE PO SCH ×3 (05:51→22:38)
[2019-07-20 09:13] LABS: HEMATOCRIT 31.9 % (35.4-49); HEMOGLOBIN 10.2 GM/dL (11.7-16.9); MCHC 31.9 g/dl (32.0-35.9); MEAN CELL VOLUME 93.8 fl (80-96); MEAN PLT VOLUME 9.6 fl (7.5-11.1); PLATELET COUNT 160 K/MM3 (134-434); RDW 16.4 % (11.9-15.9); WHITE BLOOD COUNT 4.9 K/mm3 (4.0-10.0)
[2019-07-20 09:16] LABS: ALBUMIN 2.9 g/dl (3.4-5.0); BILIRUBIN,TOTAL 0.2 mg/dL (0.2-1); BLOOD UREA NITROGEN 13.8 mg/dL (7-18); CALCIUM 8.8 mg/dL (8.5-10.1); CREATININE 1.2 mg/dL (0.55-1.3); POTASSIUM 3.9 mmol/L (3.5-5.1); TOT PROT 6.1 g/dl (6.4-8.2)
[2019-07-20] MEDS ORDERED: METHADONE HCL 5 MG TABLET (FOR DETOX USE ONLY) PO ONE (10:00)
[2019-07-20] MEDS: PRENATAL VITAMINS W/ FOLIC ACID TABLET (FP) PO SCH (10:31)
[2019-07-20] MEDS: LISINOPRIL 10 MG TABLET (FP) PO SCH (10:31)
--- NOTE | 2019-07-20 14:40 | PN ---
[facility] CIWA - CIWA Score Nausea/Vomitin-Mild Nausea/No Vomiting Muscle Tremors: 4-Moderate,w/Arms Extend Anxiety: 3 Agitation: 3 Paroxysmal Sweats: 3 Orientation: 0-Oriented Tacttile Disturbances: 0-None Auditory Disturbances: 0-None Visual Disturbances: 0-None Headache: 0-None Present CIWA-Ar Total Score: 14 BHS COWS - Scale Resting Pulse: 0= SD 80 or Below Sweatin= Chills/Flushing Restless Observation: 3= Extraneous Movement Pupil Size: 0= Normal to Room Light Bone or Joint Aches: 2= Severe Diffuse Aches Runny Nose/ Eye Tearin= Runny Nose/Eyes GI Upset > 30mins: 3= Vomiting/Diarrhea Tremor Observation of Outstretched Hands: 2= Slight Tremor Visible Yawning Observation: 1= 1-2x During Session Anxiety or Irritability: 2=Irritable/Anxious Goose Flesh Skin: 0=Smooth Skin COWS Score: 16 S Progress Note (SOAP) Subjective: Sweating, pain in legs, interrupted sleep. Patient requested to see Psychiatrist regarding home medication stated he takes trazodone at home. Objective: 07/20/19 14:39 Last Vital Signs Temp Pulse Resp BP Pulse Ox 98.1 F 78 18 137/80 07/20/19 13:18 07/20/19 13:18 07/20/19 13:18 07/20/19 13:18 Elevated b/p: denies htn, on clonidine prn Laboratory Tests 07/20/19 07/20/19 07/20/19 07:40 07:40 07:40 WBC 4.9 RBC 3.40 L Hgb 10.2 L Hct 31.9 L MCV 93.8 MCH 30.0 MCHC 31.9 L RDW 16.4 H Plt Count 160 MPV 9.6 Sodium 139 Potassium 3.9 Chloride 106 Carbon Dioxide 25 Anion Gap 8 BUN 13.8 Creatinine 1.2 Est GFR (CKD-EPI)AfAm 78.98 Est GFR (CKD-EPI)NonAf 68.14 Random Glucose 111 H Calcium 8.8 Total Bilirubin 0.2 AST 7 L ALT 12 L Alkaline Phosphatase 81 Total Protein 6.1 L Albumin 2.9 L RPR Titer Nonreactive Labs reviewed: mild anemia Assessment: 07/20/19 14:41 Withdrawal sxs Noted with elevated b/p and mild anemia Plan: Continue detox Encouraged PO water intake Psychiatrist consult ordered re: home medication as per patient's request Elevated b/p: most likely due to withdrawal, on clonidine prn Mild anemia: most likely due to alcoholism: encouraged abstinence, follow up with PCP for monitoring
[2019-07-20] MEDS: THIAMINE HCL 100 MG TABLET (FP) PO SCH (22:38)
[2019-07-20] MEDS: MELATONIN 5 MG TABLETS PO PRN (22:39)
[2019-07-21] MEDS: chlordiazePOXIDE 5 MG CAPSULE PO SCH ×3 (05:36→21:38)
--- NOTE | 2019-07-21 07:12 | EKG ---
Test Reason : Blood Pressure : / mmHG Vent. Rate : 085 BPM Atrial Rate : 085 BPM P-R Int : 134 ms QRS Dur : 078 ms QT Int : 396 ms P-R-T Axes : 035 -35 -67 degrees QTc Int : 471 ms POOR DATA QUALITY, INTERPRETATION MAY BE ADVERSELY AFFECTED NORMAL SINUS RHYTHM LEFT AXIS DEVIATION NONSPECIFIC ST AND T WAVE ABNORMALITY ABNORMAL ECG WHEN COMPARED WITH ECG OF 22-MAR-2019 11:59, T WAVE AMPLITUDE HAS DECREASED IN ANTERIOR LEADS Confirmed by KEHINDE DAMON MD ([id number]) on 07/21/2019 7:12:26 AM Referred By: Confirmed By:KEHINDE DAMON MD
[2019-07-21] MEDS ORDERED: METHADONE HCL 10 MG TABLET (FOR DETOX USE ONLY) PO ONE (10:00)
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
[2019-07-21] MEDS: PRENATAL VITAMINS W/ FOLIC ACID TABLET (FP) PO SCH (11:12)
[2019-07-21] MEDS: LISINOPRIL 10 MG TABLET (FP) PO SCH (11:14)
--- NOTE | 2019-07-21 11:54 | PN ---
[facility] CIWA - CIWA Score Nausea/Vomitin-Mild Nausea/No Vomiting Muscle Tremors: 1-None Visible, but [place] Anxiety: 2 Agitation: 2 Paroxysmal Sweats: No Perspiration Orientation: 0-Oriented Tacttile Disturbances: 1-Very Mild Itch/Numbness Auditory Disturbances: 0-None Visual Disturbances: 0-None Headache: 1-Very Mild CIWA-Ar Total Score: 8 [facility] COWS - Scale Resting Pulse: 0= MT 80 or Below Sweatin= No chills or [place]ushing Restless Observation: 1= Difficult to Sit Still Pupil Size: 1= Pupils >than Normal Bone or Joint Aches: 1= Mild Discomfort Runny Nose/ Eye Tearin= Nasal Congestion GI Upset > 30mins: 1= Stomach Cramp Tremor Observation of Outstretched Hands: 1= Tremor [place], Not Seen Yawning Observation: 1= 1-2x During Session Anxiety or Irritability: 2=Irritable/Anxious Goose Flesh Skin: 0=Smooth Skin COWS Score: 9 [facility] Progress Note (SOAP) Subjective: alert,irrtiable,anxious,interrupted sleep,pain in the body and back Objective: 07/21/19 11:53 Vital Signs Temperature 98.2 F 07/21/19 10:55 Pulse Rate 75 07/21/19 10:55 Respiratory Rate 20 07/21/19 10:55 Blood Pressure 107/57 L 07/21/19 10:55 O2 Sat by Pulse Oximetry (%) Assessment: 07/21/19 11:54 withdrawal symptom Plan: continue detox methadone and librium regimen
[2019-07-21] MEDS: DULoxetine HCL 30 MG CAPSULE.DR PO SCH (18:28)
[2019-07-21] MEDS: TOPIRAMATE 25 MG TABLET (FP) PO SCH (21:37)
[2019-07-21] MEDS: traZODone HCL 100 MG TABLET (FP) PO PRN (21:38)
[2019-07-21] MEDS: THIAMINE HCL 100 MG TABLET (FP) PO SCH (21:38)
[2019-07-22] MEDS ORDERED: chlordiazePOXIDE HCL 10 MG CAPSULE PO PRN
[2019-07-22] MEDS: chlordiazePOXIDE HCL 10 MG CAPSULE PO SCH ×3 (05:50→22:15)
[2019-07-22] MEDS ORDERED: METHADONE HCL 5 MG TABLET (FOR DETOX USE ONLY) PO ONE (06:00)
[2019-07-22] MEDS: DULoxetine HCL 30 MG CAPSULE.DR PO SCH ×2 (10:37→19:08)
[2019-07-22] MEDS: PRENATAL VITAMINS W/ FOLIC ACID TABLET (FP) PO SCH (10:37)
[2019-07-22] MEDS: LISINOPRIL 10 MG TABLET (FP) PO SCH (10:39)
--- NOTE | 2019-07-22 16:05 | PN ---
[facility] CIWA - CIWA Score Nausea/Vomitin-No Nausea/No Vomiting Muscle Tremors: None Anxiety: 0-No Anxiety, at Ease Agitation: 2 Paroxysmal Sweats: No Perspiration Orientation: 0-Oriented Tacttile Disturbances: 0-None Auditory Disturbances: 0-None Visual Disturbances: 0-None Headache: 0-None Present CIWA-Ar Total Score: 2 S COWS - Scale Resting Pulse: 2= [place] 101-120 Sweatin= No chills or [place] Restless Observation: 1= Difficult to Sit Still Pupil Size: 0= Normal to Room Light Bone or Joint Aches: 0= None Runny Nose/ Eye Tearin= None GI Upset > 30mins: 0= None Tremor Observation of Outstretched Hands: 0= None Yawning Observation: 1= 1-2x During Session Anxiety or Irritability: 0= None Goose Flesh Skin: 0=Smooth Skin COWS Score: 4 [facility] Progress Note (SOAP) Subjective: Patient denies current Withdrawal / Detox symptoms and reports that he feels well overall at this time. Objective: PATIENT A & O X 3, OBSERVED AMBULATING ON DETOX UNIT WITH ASSISTANCE OF A WALKER. IN NO ACUTE DISTRESS. 07/22/19 16:03 Vital Signs Temperature 98.1 F 07/22/19 13:36 Pulse Rate 103 H 07/22/19 13:36 Respiratory Rate 18 07/22/19 13:36 Blood Pressure 144/76 07/22/19 13:36 O2 Sat by Pulse Oximetry (%) Laboratory Tests 07/20/19 07/20/19 07/20/19 07:40 07:40 07:40 WBC 4.9 RBC 3.40 L Hgb 10.2 L Hct 31.9 L MCV 93.8 MCH 30.0 MCHC 31.9 L RDW 16.4 H Plt Count 160 MPV 9.6 Sodium 139 Potassium 3.9 Chloride 106 Carbon Dioxide 25 Anion Gap 8 BUN 13.8 Creatinine 1.2 Est GFR (CKD-EPI)AfAm 78.98 Est GFR (CKD-EPI)NonAf 68.14 Random Glucose 111 H Calcium 8.8 Total Bilirubin 0.2 AST 7 L ALT 12 L Alkaline Phosphatase 81 Total Protein 6.1 L Albumin 2.9 L RPR Titer Nonreactive LABS NOTED. PATIENT HAS BEEN ANEMIC ON PREVIOUS ADMISSIONS. 07/22/19 16:04 Assessment: 07/22/19 16:04 WITHDRAWAL SYMPTOMS. ANEMIA. HYPERTENSION. 07/22/19 16:05 Plan: CONTINUE DETOX. PATIENT IS CURRENTLY RECEIVING DAILY MVI CONTAINING B VITAMINS AND IRON WHILE ADMITTED FOR DETOX. PATIENT SCHEDULED FOR D/C FROM DETOX UNIT TOMORROW.
[2019-07-22] MEDS: THIAMINE HCL 100 MG TABLET (FP) PO SCH (22:15)
[2019-07-22] MEDS: traZODone HCL 100 MG TABLET (FP) PO PRN (22:17)
[2019-07-22] MEDS: TOPIRAMATE 25 MG TABLET (FP) PO SCH (22:17)
[2019-07-23] MEDS ORDERED: chlordiazePOXIDE HCL 10 MG CAPSULE PO ONE (05:00)
[2019-07-23 08:50] VITALS: BP 124/59; PULSE 72; TEMP 97.8
--- NOTE | 2019-07-23 09:31 | DS ---
[facility] Detox Discharge Summary Admission Date: 07/19/19 Discharge Date: 07/23/19 - History Present History: Alcohol Dependence, Cocaine Dependence, Opioid Dependence - Physical Exam Results Vital Signs: Vital Signs Temperature 97.8 F 07/23/19 08:49 Pulse Rate 72 07/23/19 08:49 Respiratory Rate 18 07/23/19 08:49 Blood Pressure 124/59 L 07/23/19 08:49 O2 Sat by Pulse Oximetry (%) Pertinent Admission Physical Exam Findings: pt arrived in withdrawals Laboratory Tests 07/20/19 07/20/19 07/20/19 07:40 07:40 07:40 WBC 4.9 RBC 3.40 L Hgb 10.2 L Hct 31.9 L MCV 93.8 MCH 30.0 MCHC 31.9 L RDW 16.4 H Plt Count 160 MPV 9.6 Sodium 139 Potassium 3.9 Chloride 106 Carbon Dioxide 25 Anion Gap 8 BUN 13.8 Creatinine 1.2 Est GFR (CKD-EPI)AfAm 78.98 Est GFR (CKD-EPI)NonAf 68.14 Random Glucose 111 H Calcium 8.8 Total Bilirubin 0.2 AST 7 L ALT 12 L Alkaline Phosphatase 81 Total Protein 6.1 L Albumin 2.9 L RPR Titer Nonreactive today pt is aaox3 ambulating no acute distress - Treatment Hospital Course: Detox Protocol Followed, Detoxed Safely, Responded well, Discharged Condition Good, Rehab Referral Accepted Patient has Accepted a Rehab Referral to: referred to [facility] - Medication Discharge Medications: Ambulatory Orders traZODone HCL [Desyrel -] 200 mg PO HS PRN tablet 03/25/19 Lisinopril 10 mg PO DAILY 07/19/19 - Diagnosis (1) Anemia Current Visit: Yes Status: Chronic Qualifiers: Anemia type: unspecified type Qualified Code(s): D64.9 - Anemia, unspecified (2) Cocaine dependence Current Visit: Yes Status: Chronic Qualifiers: Substance use status: uncomplicated Qualified Code(s): F14.20 - Cocaine dependence, uncomplicated (3) Substance induced mood disorder Current Visit: Yes Status: Acute (4) Substance-induced sleep disorder Current Visit: Yes Status: Acute (5) Uncomplicated alcohol dependence Current Visit: Yes Status: Chronic (6) Uncomplicated opioid dependence Current Visit: Yes Status: Chronic (7) Bipolar disorder Current Visit: Yes Status: Chronic (8) CHF (congestive heart failure) Current Visit: Yes Status: Chronic (9) COPD (chronic obstructive pulmonary disease) Current Visit: Yes Status: Chronic (10) GERD (gastroesophageal reflux disease) Current Visit: Yes Status: Chronic Qualifiers: Esophagitis presence: without esophagitis Qualified Code(s): K21.9 - Gastro -esophageal reflux disease without esophagitis (11) HTN (hypertension) Current Visit: Yes Status: Chronic (12) Hip pain, bilateral Current Visit: Yes Status: Chronic (13) Knee pain, bilateral Current Visit: Yes Status: Chronic (14) Nicotine dependence Current Visit: Yes Status: Chronic Qualifiers: Nicotine product type: cigarettes Substance use status: uncomplicated Qualified Code(s): F17.210 - Nicotine dependence, cigarettes, uncomplicated (15) Alcohol abuse Current Visit: No Status: Acute (16) COPD (chronic obstructive pulmonary disease) Current Visit: No Status: Acute Qualifiers: COPD type: unspecified COPD Qualified Code(s): J44.9 - Chronic obstructive pulmonary disease, unspecified - AMA Did Patient Leave Against Medical Advice: No
== END 2019-07-23 10:13 | disposition home or self-care (01) | DRG 773 ==
LOC: YASAS 13:06 → Y6N 17:14
PROVIDERS: ADMIT Surgery; ATTEND Surgery
PROC: HZ2ZZZZ Detoxification Services for Substance Abuse Treatment (ICD-10-PCS; principal; 2019-07-19)
DX: F11.23 Opioid dependence with withdrawal (principal); F10.230 Alcohol dependence with withdrawal, uncomplicated; F14.20 Cocaine dependence, uncomplicated; F17.210 Nicotine dependence, cigarettes, uncomplicated; F19.24 Other psychoactive substance dependence with psychoactive substance-induced mood disorder; F19.282 Other psychoactive substance dependence with psychoactive substance-induced sleep disorder; F31.9 Bipolar disorder, unspecified; I11.0 Hypertensive heart disease with heart failure; D64.9 Anemia, unspecified; I50.9 Heart failure, unspecified; J44.9 Chronic obstructive pulmonary disease, unspecified; K21.9 Gastro-esophageal reflux disease without esophagitis; M25.562 Pain in left knee; M25.561 Pain in right knee; M25.552 Pain in left hip; M25.551 Pain in right hip
CPT/HCPCS: 36415; 80053; 85027; 86593; 93005; 93010; J0735

== ENCOUNTER 2024-02-15 13:18 | Inpatient (IN) | payer BC, OTHER ==
[2024-02-15 14:08] LABS: BASO % 0.5 % (0-2.0); EOS % 2.5 % (0-4.5); HEMATOCRIT 17.2 % (35.4-49); LYMPH % 17.1 % (8-40); MCH 22.4 pg (25.7-33.7); MCHC 30.8 g/dl (32.0-35.9); MEAN CELL VOLUME 72.6 fl (80-96); MEAN PLT VOLUME 7.3 fl (7.5-11.1); NEUT % 74.9 % (42.8-82.8); PLATELET COUNT 290 10^3/uL (134-434); RBC 2.36 M/mm3 (4.00-5.60); RDW 18.7 % (11.9-15.9); WHITE BLOOD COUNT 11.7 K/mm3 (4.0-10.0)
[2024-02-15 14:14] LABS: INR 1.73 (0.83-1.09)
[2024-02-15 14:15] LABS: HEMOGLOBIN 5.3 GM/dL (11.7-16.9)
[2024-02-15 14:17] LABS: ACTIVATED PTT 37.3 SECONDS (25.2-36.5)
[2024-02-15 14:30] LABS: CALCIUM 7.9 mg/dL (8.5-10.1)
[2024-02-15 14:31] LABS: ALBUMIN 2.6 g/dl (3.4-5.0); BLOOD UREA NITROGEN 25.1 mg/dL (7-18)
[2024-02-15 14:34] LABS: BILIRUBIN,TOTAL 0.3 mg/dL (0.2-1); CREATININE 1.3 mg/dL (0.55-1.3); TOT PROT 6.3 g/dl (6.4-8.2)
[2024-02-15 15:51] LABS: IRON SERUM 10 ug/dL (50-175); TOTAL IRON BINDING CAPACITY 289 ug/dL (250-450)
[2024-02-15] MEDS: INSULIN ASPART SLIDING SCALE (NOVOLOG) 1 VIAL SQ SCH (18:55)
[2024-02-15] MEDS: PANTOPRAZOLE SODIUM 40 MG VIAL IVPUSH SCH (21:39)
[2024-02-15] MEDS: DEXTROSE 5%-0.45% SALINE 1,000 ML IV SCH (21:40)
[2024-02-16] MEDS ORDERED: INSULIN (NOVOLOG) ASPART 100 UNITS/ML 10ML VIAL ONE (06:45)
[2024-02-16 08:51] LABS: URINE APPEARANCE CLEAR; URINE BILIRUBIN NEGATIVE (NEGATIVE); URINE COLOR YELLOW; URINE GLUCOSE (UA) NEGATIVE (NEGATIVE); URINE KETONE NEGATIVE (NEGATIVE); URINE LEUK ESTERASE NEGATIVE (NEGATIVE); URINE NITRITE NEGATIVE (NEGATIVE); URINE PROTEIN NEGATIVE (NEGATIVE)
[2024-02-16 08:52] LABS: BASO % 0.5 % (0-2.0); EOS % 1.6 % (0-4.5); HEMATOCRIT 22.4 % (35.4-49); HEMOGLOBIN 7.2 GM/dL (11.7-16.9); MCHC 32.2 g/dl (32.0-35.9); MEAN CELL VOLUME 77.7 fl (80-96); MONO % 4.4 % (3.8-10.2); NEUT % 80.5 % (42.8-82.8); PLATELET COUNT 279 10^3/uL (134-434); RBC 2.88 M/mm3 (4.00-5.60); RDW 19.2 % (11.9-15.9); WHITE BLOOD COUNT 12.9 K/mm3 (4.0-10.0)
[2024-02-16 09:16] LABS: CALCIUM 8.2 mg/dL (8.5-10.1)
[2024-02-16 09:17] LABS: ALBUMIN 2.4 g/dl (3.4-5.0); BLOOD UREA NITROGEN 16.7 mg/dL (7-18)
[2024-02-16 09:20] LABS: CREATININE 1.1 mg/dL (0.55-1.3)
[2024-02-16 09:21] LABS: BILIRUBIN,TOTAL 0.9 mg/dL (0.2-1)
[2024-02-16 09:22] LABS: TOT PROT 6.1 g/dl (6.4-8.2)
[2024-02-17 08:55] LABS: BASO % 0.4 % (0-2.0); EOS % 1.7 % (0-4.5); HEMATOCRIT 21.8 % (35.4-49); HEMOGLOBIN 7.1 GM/dL (11.7-16.9); LYMPH % 15.8 % (8-40); MCH 24.8 pg (25.7-33.7); MCHC 32.4 g/dl (32.0-35.9); MEAN CELL VOLUME 76.5 fl (80-96); MEAN PLT VOLUME 7.7 fl (7.5-11.1); MONO % 5.4 % (3.8-10.2); NEUT % 76.7 % (42.8-82.8); PLATELET COUNT 301 10^3/uL (134-434); RBC 2.85 M/mm3 (4.00-5.60); RDW 19.5 % (11.9-15.9); WHITE BLOOD COUNT 10.1 K/mm3 (4.0-10.0)
[2024-02-17] MEDS: AMITRIPTYLINE HCL 10 MG TABLET PO SCH (22:26)
[2024-02-17] MEDS: GABAPENTIN 400 MG CAPSULE PO SCH (22:26)
[2024-02-17] MEDS: TAMSULOSIN HCL 0.4 MG CAP PO SCH (22:26)
[2024-02-18 09:10] LABS: BASO % 0.3 % (0-2.0); EOS % 1.8 % (0-4.5); HEMATOCRIT 26.5 % (35.4-49); LYMPH % 13.8 % (8-40); MCH 26.2 pg (25.7-33.7); MCHC 33.8 g/dl (32.0-35.9); MEAN CELL VOLUME 77.4 fl (80-96); MEAN PLT VOLUME 7.9 fl (7.5-11.1); NEUT % 78.1 % (42.8-82.8); PLATELET COUNT 288 10^3/uL (134-434); RBC 3.42 M/mm3 (4.00-5.60); RDW 18.9 % (11.9-15.9); WHITE BLOOD COUNT 10.9 K/mm3 (4.0-10.0)
[2024-02-18 09:27] LABS: POTASSIUM 3.4 mmol/L (3.5-5.1)
[2024-02-18 09:28] LABS: CALCIUM 7.8 mg/dL (8.5-10.1)
[2024-02-18 09:29] LABS: ALBUMIN 2.4 g/dl (3.4-5.0); BLOOD UREA NITROGEN 6.7 mg/dL (7-18)
[2024-02-18 09:44] LABS: INR 1.3 (0.83-1.09)
[2024-02-18] MEDS: FUROSEMIDE 40 MG TABLET (FP) PO SCH (11:58)
[2024-02-18] MEDS: PEG 3350/NA SULF BICARB CL/KCL 4000 ML SOLN.RECON PO ONE (15:34)
[2024-02-18] MEDS: BISACODYL 5 MG TABLET.DR (FP) PO ONE ×2 (22:18→22:20)
[2024-02-18] MEDS: BACLOFEN 10 MG TABLET (FP) PO SCH (22:19)
[2024-02-19 07:50] LABS: INR 1.34 (0.83-1.09); PROTHROMBIN TIME (PATIENT) 15.5 SEC (9.7-13.0)
[2024-02-19 07:58] LABS: BASO % 0.3 % (0-2.0); HEMATOCRIT 31.6 % (35.4-49); HEMOGLOBIN 10.5 GM/dL (11.7-16.9); LYMPH % 10.5 % (8-40); MCH 26.2 pg (25.7-33.7); MCHC 33.2 g/dl (32.0-35.9); MEAN CELL VOLUME 78.8 fl (80-96); MEAN PLT VOLUME 7.9 fl (7.5-11.1); NEUT % 81.2 % (42.8-82.8); PLATELET COUNT 322 10^3/uL (134-434); RBC 4.01 M/mm3 (4.00-5.60); RDW 19.4 % (11.9-15.9); WHITE BLOOD COUNT 12.5 K/mm3 (4.0-10.0)
[2024-02-19 08:04] LABS: POTASSIUM 3.9 mmol/L (3.5-5.1)
[2024-02-19 08:20] LABS: CALCIUM 8.2 mg/dL (8.5-10.1)
[2024-02-19 08:21] LABS: BLOOD UREA NITROGEN 5.8 mg/dL (7-18)
[2024-02-19] MEDS: PEG 3350/NA SULF BICARB CL/KCL 4000 ML SOLN.RECON PO ONE (14:18)
[2024-02-20 09:22] LABS: BASO % 0.4 % (0-2.0); EOS % 1.5 % (0-4.5); HEMATOCRIT 29.4 % (35.4-49); HEMOGLOBIN 9.8 GM/dL (11.7-16.9); LYMPH % 13.7 % (8-40); MCHC 33.3 g/dl (32.0-35.9); MEAN PLT VOLUME 7.7 fl (7.5-11.1); MONO % 6.2 % (3.8-10.2); NEUT % 78.2 % (42.8-82.8); PLATELET COUNT 298 10^3/uL (134-434); RBC 3.77 M/mm3 (4.00-5.60); WHITE BLOOD COUNT 11.2 K/mm3 (4.0-10.0)
[2024-02-20 09:44] LABS: POTASSIUM 3.5 mmol/L (3.5-5.1)
[2024-02-20 10:10] LABS: ALBUMIN 2.4 g/dl (3.4-5.0)
[2024-02-20 10:13] LABS: CALCIUM 8.5 mg/dL (8.5-10.1)
[2024-02-20 10:14] LABS: TOT PROT 6.4 g/dl (6.4-8.2)
[2024-02-20 10:15] LABS: BILIRUBIN,TOTAL 0.8 mg/dL (0.2-1)
[2024-02-20 10:17] LABS: BLOOD UREA NITROGEN 4.8 mg/dL (7-18)
[2024-02-20] MEDS: PEG 3350/NA SULF BICARB CL/KCL 4000 ML SOLN.RECON PO ONE (10:30)
[2024-02-20] MEDS: BISACODYL 5 MG TABLET.DR (FP) PO ONE (18:53)
[2024-02-21 09:01] LABS: HEMATOCRIT 29.7 % (35.4-49); HEMOGLOBIN 9.8 GM/dL (11.7-16.9); MCHC 33.1 g/dl (32.0-35.9); MEAN CELL VOLUME 78.5 fl (80-96); MEAN PLT VOLUME 7.8 fl (7.5-11.1); PLATELET COUNT 269 10^3/uL (134-434); RBC 3.78 M/mm3 (4.00-5.60); RDW 20.3 % (11.9-15.9); WHITE BLOOD COUNT 14.5 K/mm3 (4.0-10.0)
[2024-02-21 09:04] LABS: INR 1.37 (0.83-1.09); PROTHROMBIN TIME (PATIENT) 15.3 SEC (9.7-13.0)
[2024-02-21 09:19] LABS: POTASSIUM 3.9 mmol/L (3.5-5.1)
[2024-02-21 09:53] LABS: ALBUMIN 2.5 g/dl (3.4-5.0); CALCIUM 8.6 mg/dL (8.5-10.1)
[2024-02-21 10:01] LABS: BILIRUBIN,TOTAL 1.1 mg/dL (0.2-1); TOT PROT 6.5 g/dl (6.4-8.2)
[2024-02-21] MEDS: PEG 3350/NA SULF BICARB CL/KCL 4000 ML SOLN.RECON PO ONE (12:00)
[2024-02-21] MEDS ORDERED: BISACODYL 5 MG TABLET.DR (FP) PO ONE (16:00)
[2024-02-21] MEDS ORDERED: PEG 3350/NA SULF BICARB CL/KCL 4000 ML SOLN.RECON PO ONE ×2 (17:00)
[2024-02-21] MEDS: BISACODYL 5 MG TABLET.DR (FP) PO ONE (21:01)
[2024-02-22 08:13] LABS: BASO % 0.4 % (0-2.0); EOS % 0.6 % (0-4.5); HEMATOCRIT 29.4 % (35.4-49); HEMOGLOBIN 9.4 GM/dL (11.7-16.9); MCHC 32.1 g/dl (32.0-35.9); MEAN CELL VOLUME 78.1 fl (80-96); MEAN PLT VOLUME 7.8 fl (7.5-11.1); PLATELET COUNT 275 10^3/uL (134-434); RBC 3.77 M/mm3 (4.00-5.60); RDW 20.3 % (11.9-15.9); WHITE BLOOD COUNT 16.7 K/mm3 (4.0-10.0)
[2024-02-22 08:19] LABS: INR 1.44 (0.83-1.09); PROTHROMBIN TIME (PATIENT) 16.1 SEC (9.7-13.0)
[2024-02-22 08:24] LABS: POTASSIUM 3.1 mmol/L (3.5-5.1)
[2024-02-22 08:26] LABS: BLOOD UREA NITROGEN 4.6 mg/dL (7-18); CALCIUM 7.9 mg/dL (8.5-10.1)
[2024-02-22 16:10] VITALS: BMI 35.6
[2024-02-22 17:28] VITALS: RESP 18
[2024-02-22] MEDS: POTASSIUM CHLORIDE ORAL LIQUID 20 MEQ/15 ML PO ONE (22:52)
[2024-02-23 09:24] VITALS: BP 123/75; PULSE 100; TEMP 98.8
[2024-02-23] MEDS: POLYETHYLENE GLYCOL (HEALTHYLAX) 3350 17 GM PACKET PO SCH (09:25)
[2024-02-23 10:17] LABS: BASO % 0.3 % (0-2.0); EOS % 0.3 % (0-4.5); HEMATOCRIT 27.1 % (35.4-49); HEMOGLOBIN 8.8 GM/dL (11.7-16.9); LYMPH % 8.2 % (8-40); MCH 25.2 pg (25.7-33.7); MCHC 32.5 g/dl (32.0-35.9); MEAN CELL VOLUME 77.4 fl (80-96); MEAN PLT VOLUME 7.8 fl (7.5-11.1); MONO % 6.5 % (3.8-10.2); NEUT % 84.7 % (42.8-82.8); PLATELET COUNT 246 10^3/uL (134-434); RBC 3.51 M/mm3 (4.00-5.60); RDW 20.1 % (11.9-15.9); WHITE BLOOD COUNT 13.1 K/mm3 (4.0-10.0)
[2024-02-23 10:46] LABS: POTASSIUM 3.8 mmol/L (3.5-5.1)
[2024-02-23 10:53] LABS: CALCIUM 8.1 mg/dL (8.5-10.1)
[2024-02-23 10:54] LABS: ALBUMIN 2.1 g/dl (3.4-5.0); BLOOD UREA NITROGEN 5.6 mg/dL (7-18)
[2024-02-23 10:56] LABS: CREATININE 1.1 mg/dL (0.55-1.3)
[2024-02-23 10:58] LABS: BILIRUBIN,TOTAL 0.9 mg/dL (0.2-1)
== END 2024-02-23 12:15 | DRG 663 ==
LOC: JER 13:18 → JERBED 14:52 → J7W 16:09 → OBSVTOIN 18:23
PROVIDERS: ADMIT Internal Medicine; ATTEND Internal Medicine
PROC: 30233N1 Transfusion of Nonautologous Red Blood Cells into Peripheral Vein, Percutaneous Approach (ICD-10-PCS; 2024-02-15)
PROC: 0DJ08ZZ Inspection of Upper Intestinal Tract, Via Natural or Artificial Opening Endoscopic (ICD-10-PCS; principal; 2024-02-18 10:15)
PROC: 0DJD8ZZ Inspection of Lower Intestinal Tract, Via Natural or Artificial Opening Endoscopic (ICD-10-PCS; 2024-02-19)
PROC: 0DJD8ZZ Inspection of Lower Intestinal Tract, Via Natural or Artificial Opening Endoscopic (ICD-10-PCS; 2024-02-22)
DX: D64.9 Anemia, unspecified (principal); K59.39 Other megacolon; F25.9 Schizoaffective disorder, unspecified; F17.210 Nicotine dependence, cigarettes, uncomplicated; F31.9 Bipolar disorder, unspecified; F39 Unspecified mood [affective] disorder; J44.9 Chronic obstructive pulmonary disease, unspecified; K21.9 Gastro-esophageal reflux disease without esophagitis; K92.2 Gastrointestinal hemorrhage, unspecified; M79.606 Pain in leg, unspecified; N39.0 Urinary tract infection, site not specified; E66.9 Obesity, unspecified; Z68.35 Body mass index [BMI] 35.0-35.9, adult
CPT/HCPCS: 36415; 36430; 80048; 80053; 81003; 82272; 82962; 83540; 83550; 85025; 85610; 85730; 86850; 86900; 86901; 86922; 87086; 87186; 93005; 93010; 99285-25; G0378; J0475; P9058

== ENCOUNTER 2024-03-31 12:14 | Inpatient (IN) | payer OTHER ==
[2024-03-31] MEDS: LACTATED RINGERS SOLUTION 1000 ML INFUS.BAG IV ONE (13:05)
[2024-03-31] MEDS ORDERED: ONDANSETRON 4 MG/2 ML VIAL ONE ×2 (13:17→15:52)
[2024-03-31 13:18] LABS: HEMATOCRIT 38.3 % (35.4-49); HEMOGLOBIN 12.4 GM/dL (11.7-16.9); MCH 24.2 pg (25.7-33.7); MCHC 32.4 g/dl (32.0-35.9); MEAN CELL VOLUME 74.5 fl (80-96); MEAN PLT VOLUME 8.9 fl (7.5-11.1); PLATELET COUNT 364 10^3/uL (134-434); RBC 5.14 M/mm3 (4.00-5.60); RDW 20.9 % (11.9-15.9); WHITE BLOOD COUNT 20.6 K/mm3 (4.0-10.0)
[2024-03-31] MEDS: ONDANSETRON 4 MG/2 ML VIAL IVPUSH ONE (13:19)
[2024-03-31 13:27] LABS: INR 1.2 (0.83-1.09); PROTHROMBIN TIME (PATIENT) 13.5 SEC (9.7-13.0)
[2024-03-31 13:28] LABS: VENOUS BASE EXCESS -1.9 mmol/L (-2-2); VENOUS PH 7.365 (7.310-7.410)
[2024-03-31 13:30] LABS: ACTIVATED PTT 38.3 SECONDS (25.2-36.5)
[2024-03-31 13:49] LABS: ANISOCYTOSIS 3+; MACROCYTOSIS 0
[2024-03-31 13:53] LABS: POTASSIUM 3.3 mmol/L (3.5-5.1)
[2024-03-31] MEDS ORDERED: ACETAMINOPHEN INJECTION 100 ML IVPB ONE ×2 (13:54→20:47)
[2024-03-31] MEDS ORDERED: FAMOTIDINE 20 MG/50 ML IVPB 20 MG/50 ML MG IVPB ONE (13:54)
[2024-03-31] MEDS ORDERED: PIPERACILLIN/TAZOB 4.5 GM 4.5 GM/100 ML BAG IVPB ONE (13:54)
[2024-03-31 13:55] LABS: CALCIUM 10.3 mg/dL (8.5-10.1)
[2024-03-31 13:56] LABS: ALBUMIN 3.5 g/dl (3.4-5.0)
[2024-03-31 14:00] LABS: BILIRUBIN,TOTAL 0.5 mg/dL (0.2-1)
[2024-03-31] MEDS: ACETAMINOPHEN 1000 MG/100 ML BAG IVPB ONE ×2 (14:00→20:49)
[2024-03-31 14:07] LABS: CREATININE 1.9 mg/dL (0.55-1.3)
[2024-03-31] MEDS: FAMOTIDINE 20 MG/50 ML IVPB 20 MG/50 ML MG IVPB ONE (14:19)
[2024-03-31 14:30] LABS: LACTIC ACID 2.2 mmol/L (0.4-2.0)
[2024-03-31] MEDS: PIPERACILLIN/TAZOB 4.5 GM 4.5 GM in DEXTROSE 5%-WATER 100 ML IVPB ONE (14:55)
[2024-03-31] MEDS ORDERED: MIDAZOLAM HCL 2 MG/2 ML SINGLE DOSE VIAL ONE (15:44)
[2024-03-31] MEDS ORDERED: SUGAMMADEX SODIUM 200 MG/2 ML VIAL ONE ×2 (15:44→18:41)
[2024-03-31] MEDS ORDERED: FENTANYL CITRATE/PF 50 MCG/ML VIAL ONE ×4 (15:44→17:34)
[2024-03-31] MEDS ORDERED: PROPOFOL 20 ML ONE (15:44)
[2024-03-31] MEDS ORDERED: DEXAMETHASONE SOD PHOSPHATE 4 MG/1 ML VIAL ONE ×2 (15:52→16:37)
[2024-03-31] MEDS ORDERED: LIDOCAINE HCL/PF 2% SDV 5ML VIAL ONE (15:52)
[2024-03-31] MEDS ORDERED: SEVOFLURANE 250 ML BTL ONE (15:53)
[2024-03-31] MEDS: cefOXitin SODIUM 2 GM VIAL (RESTRICTED TO ID) IVPB ONE (16:30)
[2024-03-31] MEDS ORDERED: CEFOXITIN SODIUM 2 GM IVPB ONE (16:42)
[2024-03-31] MEDS ORDERED: ONDANSETRON 4 MG/2 ML VIAL IVPUSH PRN ×2 (18:33→18:55)
[2024-03-31] MEDS: LACTATED RINGERS SOLUTION 1,000 ML/1,000 ML INFUS.BAG IV SCH (18:50)
[2024-03-31] MEDS ORDERED: PROMETHAZINE HCL 25 MG/1 ML VIAL IVPB PRN (18:55)
[2024-03-31 19:42] LABS: BASO % 0.1 % (0-2.0); EOS % 0.1 % (0-4.5); HEMATOCRIT 27.7 % (35.4-49); LYMPH % 6.4 % (8-40); MCH 23.9 pg (25.7-33.7); MCHC 32.3 g/dl (32.0-35.9); MEAN PLT VOLUME 8.7 fl (7.5-11.1); MONO % 2.3 % (3.8-10.2); NEUT % 91.1 % (42.8-82.8); PLATELET COUNT 216 10^3/uL (134-434); RBC 3.74 M/mm3 (4.00-5.60); RDW 20.7 % (11.9-15.9); WHITE BLOOD COUNT 11.9 K/mm3 (4.0-10.0)
[2024-03-31 19:50] LABS: INR 1.32 (0.83-1.09); PROTHROMBIN TIME (PATIENT) 14.8 SEC (9.7-13.0)
[2024-03-31 19:52] LABS: ACTIVATED PTT 38.1 SECONDS (25.2-36.5)
[2024-03-31 19:59] LABS: POTASSIUM 3.6 mmol/L (3.5-5.1)
[2024-03-31 20:01] LABS: CALCIUM 8.9 mg/dL (8.5-10.1)
[2024-03-31 20:02] LABS: ALBUMIN 3.3 g/dl (3.4-5.0); BLOOD UREA NITROGEN 27.6 mg/dL (7-18); MAGNESIUM 1.9 mg/dL (1.8-2.4)
[2024-03-31 20:05] LABS: PHOSPHOROUS 3.3 mg/dL (2.5-4.9)
[2024-03-31 20:06] LABS: ARTERIAL BLD GAS O2 SATURATION 98.5 % (95-98); ARTERIAL BLOOD GAS BASE EXCESS -4.3 mmol/L (-2-2); ARTERIAL BLOOD GAS PO2 127.7 mmHg (80-100); ARTERIAL BLOOD GAS pH 7.374 (7.350-7.450)
[2024-03-31 20:06] LABS: BILIRUBIN,TOTAL 0.6 mg/dL (0.2-1)
[2024-03-31] MEDS: ACETAMINOPHEN 1000 MG/100 ML BAG IVPB SCH (20:48)
[2024-03-31 21:39] LABS: ANISOCYTOSIS 1+; MACROCYTOSIS 0; PLATELET ESTIMATE NORMAL
[2024-03-31] MEDS: AMITRIPTYLINE HCL 10 MG TABLET PO SCH (21:50)
[2024-03-31] MEDS: HALOPERIDOL 2 MG TABLET PO SCH (21:50)
[2024-03-31] MEDS: KCL 10 MEQ IVPB 10 MEQ/100 ML INFUS.BAG IVPB SCH ×2 (22:10→22:13)
[2024-03-31] MEDS: LACTATED RINGERS SOLUTION 1,000 ML IV SCH (22:10)
[2024-03-31] MEDS: HYDROmorphone *PCA* 10MG/50ML DISP.SYRIN PCA SCH (22:11)
[2024-03-31] MEDS: LACTATED RINGERS SOLUTION 1,000 ML IV STA (22:12)
[2024-03-31] MEDS: ALBUMIN HUMAN 5% 500 ML IV SOLUTION IV ONE (22:12)
[2024-03-31] MEDS ORDERED: FENTANYL CITRATE/PF 50 MCG/ML VIAL IVPUSH PRN (22:59)
[2024-03-31] MEDS: MUPIROCIN 2% TOPICAL OINTMENT FOR DECOLONIZATION NS SCH (23:43)
[2024-04-01 01:21] LABS: HEMATOCRIT 27.2 % (35.4-49); HEMOGLOBIN 8.9 GM/dL (11.7-16.9); MCH 24.1 pg (25.7-33.7); MCHC 32.6 g/dl (32.0-35.9); MEAN CELL VOLUME 73.8 fl (80-96); MEAN PLT VOLUME 8.6 fl (7.5-11.1); PLATELET COUNT 209 10^3/uL (134-434); RBC 3.68 M/mm3 (4.00-5.60); RDW 20.6 % (11.9-15.9); WHITE BLOOD COUNT 17.5 K/mm3 (4.0-10.0)
[2024-04-01] MEDS: PIPERACILLIN/TAZOB 3.375 GM 3.375 GM in DEXTROSE 5%-WATER - 50 ML IVPB SCH (01:46)
[2024-04-01 06:36] LABS: ARTERIAL BLD GAS O2 SATURATION 98.9 % (95-98); ARTERIAL BLOOD GAS BASE EXCESS -3.2 mmol/L (-2-2); ARTERIAL BLOOD GAS PO2 161.5 mmHg (80-100); ARTERIAL BLOOD GAS pH 7.329 (7.350-7.450)
[2024-04-01 06:38] LABS: HEMATOCRIT 27.1 % (35.4-49); HEMOGLOBIN 8.5 GM/dL (11.7-16.9); LYMPH % 6.9 % (8-40); MCH 23.7 pg (25.7-33.7); MCHC 31.6 g/dl (32.0-35.9); MEAN CELL VOLUME 75.2 fl (80-96); MEAN PLT VOLUME 8.7 fl (7.5-11.1); MONO % 6.6 % (3.8-10.2); NEUT % 86.5 % (42.8-82.8); PLATELET COUNT 216 10^3/uL (134-434); WHITE BLOOD COUNT 17.8 K/mm3 (4.0-10.0)
[2024-04-01 06:43] LABS: INR 1.32 (0.83-1.09); PROTHROMBIN TIME (PATIENT) 14.8 SEC (9.7-13.0)
[2024-04-01 07:07] LABS: BLOOD UREA NITROGEN 28.7 mg/dL (7-18)
[2024-04-01 07:08] LABS: ALBUMIN 3.1 g/dl (3.4-5.0); CALCIUM 8.9 mg/dL (8.5-10.1)
[2024-04-01 07:11] LABS: MAGNESIUM 1.9 mg/dL (1.8-2.4); PHOSPHOROUS 3.3 mg/dL (2.5-4.9)
[2024-04-01 07:12] LABS: CREATININE 1.5 mg/dL (0.55-1.3); TOT PROT 6.9 g/dl (6.4-8.2)
[2024-04-01 07:15] LABS: BILIRUBIN,TOTAL 1.5 mg/dL (0.2-1)
[2024-04-01] MEDS ORDERED: TRIMETHOBENZAMIDE HCL 200MG/2ML INJ IM PRN (07:41)
[2024-04-01] MEDS: ENOXAPARIN NA (PORCINE) 40 MG/0.4 ML DISP.SYRIN SQ SCH (10:16)
[2024-04-01] MEDS: PANTOPRAZOLE SODIUM 40 MG VIAL IVPUSH SCH (10:17)
[2024-04-01] MEDS: VANCOMYCIN/WATER FOR INJ (PEG) 1,000 MG/200 ML BAG IVPB ONE (12:11)
[2024-04-01] MEDS: LACTATED RINGERS SOLUTION 1,000 ML/1,000 ML INFUS.BAG IV SCH (13:00)
[2024-04-01] MEDS: PIPERACILLIN/TAZOB 4.5 GM 4.5 GM in DEXTROSE 5%-WATER - 50 ML IVPB SCH (18:20)
[2024-04-01] MEDS: CHLORHEXIDINE GLUCONATE 4% CLEANSER FOR DECOLONIZATION TP SCH (21:04)
[2024-04-02] MEDS: PIPERACILLIN/TAZOB 4.5 GM 4.5 GM in DEXTROSE 5%-WATER - 50 ML IVPB SCH (03:15)
[2024-04-02 08:14] LABS: BASO % 0.3 % (0-2.0); EOS % 0.9 % (0-4.5); HEMATOCRIT 26.1 % (35.4-49); HEMOGLOBIN 8.4 GM/dL (11.7-16.9); LYMPH % 10.1 % (8-40); MCH 24.4 pg (25.7-33.7); MCHC 32.3 g/dl (32.0-35.9); MEAN CELL VOLUME 75.5 fl (80-96); MEAN PLT VOLUME 8.6 fl (7.5-11.1); MONO % 5.6 % (3.8-10.2); NEUT % 83.1 % (42.8-82.8); PLATELET COUNT 176 10^3/uL (134-434); RBC 3.46 M/mm3 (4.00-5.60); RDW 20.4 % (11.9-15.9); WHITE BLOOD COUNT 11.4 K/mm3 (4.0-10.0)
[2024-04-02 08:27] LABS: POTASSIUM 3.6 mmol/L (3.5-5.1)
[2024-04-02 08:35] LABS: ALBUMIN 2.9 g/dl (3.4-5.0); BLOOD UREA NITROGEN 19.6 mg/dL (7-18); CALCIUM 8.6 mg/dL (8.5-10.1)
[2024-04-02 08:38] LABS: CREATININE 1.2 mg/dL (0.55-1.3)
[2024-04-02 08:40] LABS: BILIRUBIN,TOTAL 0.5 mg/dL (0.2-1); TOT PROT 6.6 g/dl (6.4-8.2)
[2024-04-02] MEDS: ACETAMINOPHEN 1000 MG/100 ML BAG IVPB SCH (08:45)
[2024-04-02] MEDS: SODIUM CHLORIDE 1,000 ML IV SCH (09:47)
[2024-04-02] MEDS ORDERED: MUPIROCIN 2% TOPICAL OINTMENT FOR DECOLONIZATION NS SCH (10:00)
[2024-04-02] MEDS: ENOXAPARIN NA (PORCINE) 40 MG/0.4 ML DISP.SYRIN SQ SCH (11:03)
[2024-04-02] MEDS: morphine SULFATE 4 MG/ML VIAL IVPUSH PRN (11:03)
[2024-04-02] MEDS: PANTOPRAZOLE SODIUM 40 MG VIAL IVPUSH SCH (11:04)
[2024-04-02] MEDS: HALOPERIDOL 2 MG TABLET PO SCH (11:06)
[2024-04-02] MEDS: AMITRIPTYLINE HCL 10 MG TABLET PO SCH (21:35)
[2024-04-02] MEDS: HALOPERIDOL 1 MG TABLET PO SCH (21:35)
[2024-04-02] MEDS ORDERED: CHLORHEXIDINE GLUCONATE 4% CLEANSER FOR DECOLONIZATION TP SCH (22:00)
[2024-04-03 08:09] LABS: BASO % 0.4 % (0-2.0); EOS % 1.8 % (0-4.5); HEMATOCRIT 25.2 % (35.4-49); HEMOGLOBIN 8.1 GM/dL (11.7-16.9); LYMPH % 13.2 % (8-40); MCH 24.4 pg (25.7-33.7); MCHC 31.9 g/dl (32.0-35.9); MEAN CELL VOLUME 76.5 fl (80-96); MEAN PLT VOLUME 8.4 fl (7.5-11.1); MONO % 3.8 % (3.8-10.2); NEUT % 80.8 % (42.8-82.8); PLATELET COUNT 184 10^3/uL (134-434); RDW 20.2 % (11.9-15.9); WHITE BLOOD COUNT 9.9 K/mm3 (4.0-10.0)
[2024-04-03 08:23] LABS: POTASSIUM 3.5 mmol/L (3.5-5.1)
[2024-04-03 08:27] LABS: CALCIUM 8.2 mg/dL (8.5-10.1)
[2024-04-03 08:28] LABS: BLOOD UREA NITROGEN 11.6 mg/dL (7-18)
[2024-04-03 08:31] LABS: CREATININE 0.8 mg/dL (0.55-1.3)
[2024-04-03] MEDS: oxyCODONE HCL 5 MG TABLET PO PRN (10:23)
[2024-04-03] MEDS: ACETAMINOPHEN 325 MG TABLET (FP) PO SCH (10:24)
[2024-04-03] MEDS: HYDROmorphone HCl 2 MG/ML VIAL IVPB PRN (14:51)
[2024-04-04 07:53] LABS: BASO % 0.5 % (0-2.0); EOS % 3.4 % (0-4.5); HEMATOCRIT 24.6 % (35.4-49); LYMPH % 11.4 % (8-40); MCH 24.5 pg (25.7-33.7); MCHC 32.4 g/dl (32.0-35.9); MEAN CELL VOLUME 75.6 fl (80-96); MEAN PLT VOLUME 8.4 fl (7.5-11.1); MONO % 3.5 % (3.8-10.2); NEUT % 81.2 % (42.8-82.8); PLATELET COUNT 204 10^3/uL (134-434); RBC 3.25 M/mm3 (4.00-5.60); RDW 20.7 % (11.9-15.9); WHITE BLOOD COUNT 9.4 K/mm3 (4.0-10.0)
[2024-04-04 08:10] LABS: POTASSIUM 3.3 mmol/L (3.5-5.1)
[2024-04-04 08:14] LABS: CALCIUM 8.2 mg/dL (8.5-10.1)
[2024-04-04 08:15] LABS: BLOOD UREA NITROGEN 8.3 mg/dL (7-18)
[2024-04-04 08:19] LABS: CREATININE 0.8 mg/dL (0.55-1.3)
[2024-04-04 09:55] LABS: ANISOCYTOSIS 2+; MACROCYTOSIS 1+
[2024-04-05 08:29] LABS: BASO % 0.5 % (0-2.0); HEMOGLOBIN 9.1 GM/dL (11.7-16.9); LYMPH % 15.3 % (8-40); MCH 25.4 pg (25.7-33.7); MCHC 33.6 g/dl (32.0-35.9); MEAN CELL VOLUME 75.6 fl (80-96); MEAN PLT VOLUME 8.1 fl (7.5-11.1); NEUT % 74.2 % (42.8-82.8); PLATELET COUNT 217 10^3/uL (134-434); RBC 3.57 M/mm3 (4.00-5.60); RDW 19.8 % (11.9-15.9); WHITE BLOOD COUNT 9.1 K/mm3 (4.0-10.0)
[2024-04-05 08:45] LABS: POTASSIUM 3.6 mmol/L (3.5-5.1)
[2024-04-05 08:46] LABS: CALCIUM 8.4 mg/dL (8.5-10.1)
[2024-04-05 08:47] LABS: ALBUMIN 2.5 g/dl (3.4-5.0); BLOOD UREA NITROGEN 8.2 mg/dL (7-18)
[2024-04-05 08:50] LABS: CREATININE 0.9 mg/dL (0.55-1.3)
[2024-04-05 08:52] LABS: BILIRUBIN,TOTAL 0.5 mg/dL (0.2-1); TOT PROT 6.4 g/dl (6.4-8.2)
[2024-04-05 14:49] VITALS: BMI 32.0
[2024-04-06 08:11] LABS: POTASSIUM 3.7 mmol/L (3.5-5.1)
[2024-04-06 08:20] LABS: CALCIUM 9.1 mg/dL (8.5-10.1)
[2024-04-06 08:21] LABS: BLOOD UREA NITROGEN 9.3 mg/dL (7-18)
[2024-04-06 08:24] LABS: CREATININE 0.9 mg/dL (0.55-1.3)
[2024-04-06 08:39] LABS: BASO % 0.2 % (0-2.0); EOS % 2.1 % (0-4.5); HEMATOCRIT 34.5 % (35.4-49); HEMOGLOBIN 11.6 GM/dL (11.7-16.9); LYMPH % 11.5 % (8-40); MCH 25.1 pg (25.7-33.7); MCHC 33.5 g/dl (32.0-35.9); MEAN PLT VOLUME 8.5 fl (7.5-11.1); MONO % 5.2 % (3.8-10.2); PLATELET COUNT 310 10^3/uL (134-434); RDW 20.3 % (11.9-15.9); WHITE BLOOD COUNT 14.6 K/mm3 (4.0-10.0)
[2024-04-06] MEDS: amLODIPine BESYLATE 5 MG TABLET (FP) PO ONE (10:24)
[2024-04-06] MEDS: IBUPROFEN 600 MG TABLET (FP) PO ONE (10:24)
[2024-04-06] MEDS ORDERED: HYDROmorphone HCl 2 MG/ML VIAL IVPB PRN ×2 (11:55→11:56)
[2024-04-06 13:02] LABS: PHOSPHOROUS 2.6 mg/dL (2.5-4.9)
[2024-04-06] MEDS: TRIMETHOBENZAMIDE HCL 200MG/2ML INJ IM PRN (14:16)
[2024-04-06] MEDS ORDERED: metoPROLOL SUCCINATE 25 MG TAB.SR.24H (FP) PO SCH (15:15)
[2024-04-06] MEDS ORDERED: METOPROLOL TARTRATE 5 MG/5 ML VIAL IVPB PRN (16:58)
[2024-04-06] MEDS: POTASSIUM CHLORIDE ORAL LIQUID 20 MEQ/15 ML PO ONE (17:05)
[2024-04-06] MEDS ORDERED: ACETAMINOPHEN 1000 MG/100 ML BAG IVPB PRN (17:09)
[2024-04-06] MEDS: SODIUM CHLORIDE 1,000 ML IV SCH (17:25)
[2024-04-06] MEDS: KCL 10 MEQ IVPB 10 MEQ/100 ML INFUS.BAG IVPB SCH (17:26)
[2024-04-06] MEDS: METOPROLOL TARTRATE 5 MG/5 ML VIAL IVPB PRN (18:43)
[2024-04-06 19:10] LABS: HEMATOCRIT 38.1 % (35.4-49); HEMOGLOBIN 12.2 GM/dL (11.7-16.9); MCH 24.3 pg (25.7-33.7); MEAN CELL VOLUME 75.9 fl (80-96); MEAN PLT VOLUME 7.9 fl (7.5-11.1); PLATELET COUNT 398 10^3/uL (134-434); RBC 5.02 M/mm3 (4.00-5.60); WHITE BLOOD COUNT 21.1 K/mm3 (4.0-10.0)
[2024-04-06] MEDS: LACTATED RINGERS SOLUTION 1,000 ML/1,000 ML INFUS.BAG IV SCH (19:20)
[2024-04-06 19:27] LABS: POTASSIUM 4.2 mmol/L (3.5-5.1)
[2024-04-06] MEDS: METOPROLOL TARTRATE 25 MG TABLET (FP) PO SCH (19:27)
[2024-04-06 19:29] LABS: CALCIUM 9.4 mg/dL (8.5-10.1)
[2024-04-06 19:30] LABS: BLOOD UREA NITROGEN 18.9 mg/dL (7-18)
[2024-04-06 19:32] LABS: CREATININE 1.3 mg/dL (0.55-1.3)
[2024-04-06 19:34] LABS: BILIRUBIN,TOTAL 0.5 mg/dL (0.2-1); TOT PROT 7.8 g/dl (6.4-8.2)
[2024-04-06 19:38] LABS: LACTIC ACID 2.7 mmol/L (0.4-2.0)
[2024-04-06] MEDS: PIPERACILLIN/TAZOB 4.5 GM 4.5 GM in DEXTROSE 5%-WATER 100 ML IVPB SCH (20:20)
[2024-04-07] MEDS ORDERED: ACETAMINOPHEN 1000 MG/100 ML BAG IVPB PRN (07:11)
[2024-04-07] MEDS ORDERED: TRIMETHOBENZAMIDE HCL 200MG/2ML INJ IM PRN (07:11)
[2024-04-07] MEDS: ENOXAPARIN NA (PORCINE) 40 MG/0.4 ML DISP.SYRIN SQ SCH (09:36)
[2024-04-07] MEDS: PANTOPRAZOLE SODIUM 40 MG VIAL IVPUSH SCH (09:36)
[2024-04-07 09:47] LABS: BASO % 0.1 % (0-2.0); EOS % 0.4 % (0-4.5); HEMATOCRIT 31.3 % (35.4-49); HEMOGLOBIN 10.4 GM/dL (11.7-16.9); LYMPH % 7.4 % (8-40); MCH 24.8 pg (25.7-33.7); MCHC 33.1 g/dl (32.0-35.9); MEAN PLT VOLUME 7.9 fl (7.5-11.1); MONO % 7.1 % (3.8-10.2); PLATELET COUNT 353 10^3/uL (134-434); RBC 4.17 M/mm3 (4.00-5.60); RDW 20.8 % (11.9-15.9); WHITE BLOOD COUNT 17.4 K/mm3 (4.0-10.0)
[2024-04-07 10:08] LABS: POTASSIUM 3.8 mmol/L (3.5-5.1)
[2024-04-07 10:14] LABS: ALBUMIN 2.7 g/dl (3.4-5.0); BLOOD UREA NITROGEN 20.4 mg/dL (7-18); CALCIUM 8.8 mg/dL (8.5-10.1)
[2024-04-07 10:15] LABS: ANISOCYTOSIS 3+; MACROCYTOSIS 0
[2024-04-07 10:17] LABS: CREATININE 1.1 mg/dL (0.55-1.3)
[2024-04-07 10:18] LABS: BILIRUBIN,TOTAL 0.5 mg/dL (0.2-1); TOT PROT 7.2 g/dl (6.4-8.2)
[2024-04-07 10:20] LABS: N-TERMINAL BNP 1134.3 pg/ml (5-125)
[2024-04-07] MEDS: PIPERACILLIN/TAZOB 4.5 GM 4.5 GM in DEXTROSE 5%-WATER 100 ML IVPB SCH (11:31)
[2024-04-07] MEDS: PIPERACILLIN/TAZOB 3.375 GM 3.375 GM in DEXTROSE 5%-WATER - 50 ML IVPB SCH (18:09)
[2024-04-07] MEDS: HYDROmorphone HCl 2 MG/ML VIAL IVPB PRN (21:52)
[2024-04-08 07:36] LABS: BASO % 0.3 % (0-2.0); HEMATOCRIT 25.9 % (35.4-49); HEMOGLOBIN 8.3 GM/dL (11.7-16.9); LYMPH % 8.9 % (8-40); MCH 24.4 pg (25.7-33.7); MCHC 32.1 g/dl (32.0-35.9); MEAN PLT VOLUME 7.8 fl (7.5-11.1); NEUT % 80.8 % (42.8-82.8); PLATELET COUNT 273 10^3/uL (134-434); RBC 3.41 M/mm3 (4.00-5.60); RDW 21.4 % (11.9-15.9); WHITE BLOOD COUNT 11.9 K/mm3 (4.0-10.0)
[2024-04-08 07:44] LABS: POTASSIUM 3.6 mmol/L (3.5-5.1)
[2024-04-08 07:49] LABS: ALBUMIN 2.4 g/dl (3.4-5.0); BLOOD UREA NITROGEN 16.8 mg/dL (7-18)
[2024-04-08 07:54] LABS: BILIRUBIN,TOTAL 0.6 mg/dL (0.2-1); TOT PROT 6.3 g/dl (6.4-8.2)
[2024-04-08 07:57] LABS: CALCIUM 8.3 mg/dL (8.5-10.1)
[2024-04-08] MEDS ORDERED: ACETAMINOPHEN 325 MG TABLET (FP) PO PRN (20:20)
[2024-04-08] MEDS: LACTATED RINGERS SOLUTION 1,000 ML IV SCH (20:45)
[2024-04-08] MEDS: ACETAMINOPHEN 1000 MG/100 ML BAG IVPB PRN (22:05)
[2024-04-09 07:24] LABS: BASO % 0.4 % (0-2.0); HEMATOCRIT 26.6 % (35.4-49); HEMOGLOBIN 8.7 GM/dL (11.7-16.9); LYMPH % 12.8 % (8-40); MCH 24.8 pg (25.7-33.7); MCHC 32.5 g/dl (32.0-35.9); MEAN CELL VOLUME 76.2 fl (80-96); MEAN PLT VOLUME 7.5 fl (7.5-11.1); MONO % 8.3 % (3.8-10.2); NEUT % 75.5 % (42.8-82.8); PLATELET COUNT 257 10^3/uL (134-434); RBC 3.49 M/mm3 (4.00-5.60); RDW 21.2 % (11.9-15.9); WHITE BLOOD COUNT 8.2 K/mm3 (4.0-10.0)
[2024-04-09 07:38] LABS: POTASSIUM 3.3 mmol/L (3.5-5.1)
[2024-04-09 08:00] LABS: ALBUMIN 2.6 g/dl (3.4-5.0); CALCIUM 8.5 mg/dL (8.5-10.1)
[2024-04-09 08:01] LABS: BLOOD UREA NITROGEN 9.4 mg/dL (7-18)
[2024-04-09 08:04] LABS: CREATININE 0.8 mg/dL (0.55-1.3)
[2024-04-09 08:05] LABS: BILIRUBIN,TOTAL 0.7 mg/dL (0.2-1); TOT PROT 6.8 g/dl (6.4-8.2)
[2024-04-09] MEDS: KCL 10 MEQ IVPB 10 MEQ/100 ML INFUS.BAG IVPB SCH (16:04)
[2024-04-10 18:15] LABS: HEMATOCRIT 29.6 % (35.4-49); HEMOGLOBIN 9.6 GM/dL (11.7-16.9); MCH 24.5 pg (25.7-33.7); MCHC 32.4 g/dl (32.0-35.9); MEAN CELL VOLUME 75.7 fl (80-96); MEAN PLT VOLUME 7.1 fl (7.5-11.1); PLATELET COUNT 282 10^3/uL (134-434); RDW 20.7 % (11.9-15.9); WHITE BLOOD COUNT 10.1 K/mm3 (4.0-10.0)
[2024-04-10 18:38] LABS: POTASSIUM 3.7 mmol/L (3.5-5.1)
[2024-04-10 18:40] LABS: CALCIUM 8.7 mg/dL (8.5-10.1)
[2024-04-10 18:41] LABS: ALBUMIN 2.7 g/dl (3.4-5.0); BLOOD UREA NITROGEN 7.8 mg/dL (7-18)
[2024-04-10 18:44] LABS: CREATININE 0.8 mg/dL (0.55-1.3)
[2024-04-10 18:45] LABS: BILIRUBIN,TOTAL 0.6 mg/dL (0.2-1)
[2024-04-10 18:46] LABS: TOT PROT 7.5 g/dl (6.4-8.2)
[2024-04-10] MEDS: POLYETHYLENE GLYCOL (HEALTHYLAX) 3350 17 GM PACKET PO SCH (22:37)
[2024-04-10] MEDS: POTASSIUM CHLORIDE TABS 20 MEQ TABLET.ER (FP) PO SCH (22:38)
[2024-04-11] MEDS: DEXTROSE 50%-WATER 25 GM/50 ML DISP.SYRIN IVPUSH ONE (10:36)
[2024-04-12] MEDS: NAPH,MB-DB/K PH,MBDB POWDER PACKET PO SCH (10:31)
[2024-04-12] MEDS: LISINOPRIL 5 MG TABLET PO SCH (13:17)
[2024-04-13 08:12] LABS: CALCIUM 9.1 mg/dL (8.5-10.1)
[2024-04-13 08:13] LABS: BLOOD UREA NITROGEN 9.5 mg/dL (7-18)
[2024-04-13 08:15] LABS: BASO % 0.3 % (0-2.0); EOS % 2.4 % (0-4.5); HEMATOCRIT 30.1 % (35.4-49); HEMOGLOBIN 9.9 GM/dL (11.7-16.9); LYMPH % 13.6 % (8-40); MCH 24.6 pg (25.7-33.7); MEAN CELL VOLUME 74.6 fl (80-96); MEAN PLT VOLUME 7.6 fl (7.5-11.1); MONO % 5.6 % (3.8-10.2); NEUT % 78.1 % (42.8-82.8); PLATELET COUNT 376 10^3/uL (134-434); RBC 4.04 M/mm3 (4.00-5.60); RDW 21.2 % (11.9-15.9); WHITE BLOOD COUNT 14.4 K/mm3 (4.0-10.0)
[2024-04-13 08:17] LABS: CREATININE 0.8 mg/dL (0.55-1.3)
[2024-04-13] MEDS: AMINO ACIDS/PROTEIN HYDROLYS 30 ML LIQUID.PKT PO SCH (10:15)
[2024-04-13] MEDS: LISINOPRIL 10 MG TABLET PO SCH (10:15)
[2024-04-13] MEDS: amLODIPine BESYLATE 2.5 MG TABLET (FP) PO SCH (23:39)
[2024-04-14 13:19] LABS: BASO % 0.5 % (0-2.0); EOS % 2.7 % (0-4.5); HEMATOCRIT 30.4 % (35.4-49); HEMOGLOBIN 9.8 GM/dL (11.7-16.9); LYMPH % 15.8 % (8-40); MCH 24.6 pg (25.7-33.7); MCHC 32.2 g/dl (32.0-35.9); MEAN CELL VOLUME 76.6 fl (80-96); MEAN PLT VOLUME 7.8 fl (7.5-11.1); MONO % 5.5 % (3.8-10.2); NEUT % 75.5 % (42.8-82.8); PLATELET COUNT 398 10^3/uL (134-434); RBC 3.97 M/mm3 (4.00-5.60); RDW 21.2 % (11.9-15.9)
[2024-04-14 13:39] LABS: POTASSIUM 4.3 mmol/L (3.5-5.1)
[2024-04-14 13:46] LABS: ALBUMIN 2.9 g/dl (3.4-5.0); BLOOD UREA NITROGEN 14.4 mg/dL (7-18); CALCIUM 9.3 mg/dL (8.5-10.1)
[2024-04-14 13:51] LABS: BILIRUBIN,TOTAL 0.3 mg/dL (0.2-1)
[2024-04-14 13:53] LABS: TOT PROT 7.8 g/dl (6.4-8.2)
[2024-04-14] MEDS: TAMSULOSIN HCL 0.4 MG CAP PO SCH (21:07)
[2024-04-14] MEDS: BACLOFEN 10 MG TABLET (FP) PO SCH (21:07)
[2024-04-15 07:21] LABS: BASO % 0.4 % (0-2.0); EOS % 3.6 % (0-4.5); HEMATOCRIT 30.8 % (35.4-49); HEMOGLOBIN 9.8 GM/dL (11.7-16.9); MCH 24.5 pg (25.7-33.7); MCHC 31.9 g/dl (32.0-35.9); MEAN CELL VOLUME 76.6 fl (80-96); MEAN PLT VOLUME 7.7 fl (7.5-11.1); PLATELET COUNT 383 10^3/uL (134-434); RBC 4.02 M/mm3 (4.00-5.60); RDW 21.2 % (11.9-15.9); WHITE BLOOD COUNT 9.3 K/mm3 (4.0-10.0)
[2024-04-15 07:41] LABS: POTASSIUM 4.4 mmol/L (3.5-5.1)
[2024-04-15 07:51] LABS: ALBUMIN 2.9 g/dl (3.4-5.0); BLOOD UREA NITROGEN 16.2 mg/dL (7-18); CALCIUM 8.9 mg/dL (8.5-10.1)
[2024-04-15 07:54] LABS: CREATININE 0.8 mg/dL (0.55-1.3)
[2024-04-15 07:55] LABS: BILIRUBIN,TOTAL 0.2 mg/dL (0.2-1); TOT PROT 7.5 g/dl (6.4-8.2)
[2024-04-15 10:18] VITALS: TEMP 98.6
[2024-04-15] MEDS: VANCOMYCIN 250 MG/5 ML ORAL SOLUTION (RESTRICTED TO ID ONLY) PO SCH (11:17)
[2024-04-15 15:47] VITALS: BP 118/79; PULSE 108; RESP 22
== END 2024-04-15 18:55 | DRG 221 ==
LOC: JER 12:14 → JERBED 14:15 → JICU 21:17 → J8W 04-02 01:25 → J4W 04-06 19:52
PROVIDERS: ADMIT Internal Medicine; ATTEND Internal Medicine
PROC: 0D1M0Z4 Bypass Descending Colon to Cutaneous, Open Approach (ICD-10-PCS; 2024-03-31)
PROC: 0DTN0ZZ Resection of Sigmoid Colon, Open Approach (ICD-10-PCS; principal; 2024-03-31 16:30)
PROC: 30233N1 Transfusion of Nonautologous Red Blood Cells into Peripheral Vein, Percutaneous Approach (ICD-10-PCS; 2024-04-04)
DX: K56.2 Volvulus (principal); G82.20 Paraplegia, unspecified; N17.9 Acute kidney failure, unspecified; F14.20 Cocaine dependence, uncomplicated; G20.A1 Parkinson's disease without dyskinesia, without mention of fluctuations; K66.8 Other specified disorders of peritoneum; R78.81 Bacteremia; F25.9 Schizoaffective disorder, unspecified; E11.9 Type 2 diabetes mellitus without complications; F10.20 Alcohol dependence, uncomplicated; I10 Essential (primary) hypertension; J98.11 Atelectasis; R00.0 Tachycardia, unspecified; K56.7 Ileus, unspecified; K91.89 Other postprocedural complications and disorders of digestive system; Y83.9 Surgical procedure, unspecified as the cause of abnormal reaction of the patient, or of later complication, without mention of misadventure at the time of the procedure; D64.9 Anemia, unspecified; E66.9 Obesity, unspecified; Z68.32 Body mass index [BMI] 32.0-32.9, adult
CPT/HCPCS: 0241U-QW; 36415; 36430; 36600; 71045-TC-FY; 71260-TC; 74018-TC-FY; 74177-TC; 80048; 80053; 80061; 82140; 82803; 82962; 83036; 83605; 83735; 83880; 84100; 84439; 84443; 84484; 85025; 85027; 85610; 85730; 86850; 86900; 86901; 86922; 87040; 87324; 87449; 87493; 88307-TC; 93005; 93010; 93306-TC; 94010; 94760; 97161-GP; 99285-25; G0480; J0131; J0475; P9038; P9058; Q9967

== ENCOUNTER 2025-02-04 12:37 | Inpatient (IN) | payer BC, OTHER ==
[2025-02-04 13:03] VITALS: BMI 38.4
[2025-02-04] MEDS ORDERED: VANCOMYCIN 1,000 MG in DEXTROSE 5%-WATER - 250 ML IVPB ONE (14:37)
[2025-02-04] MEDS ORDERED: PIPERACILLIN/TAZOB 4.5 GM 4.5 GM/100 ML BAG IVPB ONE (14:48)
[2025-02-04] MEDS ORDERED: VANCOMYCIN 1 GM PREMIX (F) 1 GM/200 ML BAG ONE (14:48)
[2025-02-04 14:50] LABS: HEMATOCRIT 33.8 % (40.1-51.0); HEMOGLOBIN 10.3 g/dL (13.7-17.5); MCHC 30.5 g/dl (32.3-36.5); MEAN CELL VOLUME 81.3 fl (79.0-92.2); MEAN PLT VOLUME 10.2 fl (9.4-12.4); PLATELET COUNT 259 x10^3/uL (163-337); RDW 17.5 % (12.2-16.1)
[2025-02-04 14:57] LABS: INR 1.18 (0.83-1.09)
[2025-02-04 15:00] LABS: ACTIVATED PTT 33.5 SECONDS (25.2-36.5)
[2025-02-04] MEDS: SODIUM CHLORIDE 0.9% 500 ML INFUS.BAG IV ONE (15:06)
[2025-02-04 15:10] LABS: POTASSIUM 5.2 mmol/L (3.5-5.1)
[2025-02-04 15:12] LABS: BLOOD UREA NITROGEN 70.7 mg/dL (7-18)
[2025-02-04 15:15] LABS: CREATININE 2.5 mg/dL (0.55-1.3)
[2025-02-04 15:17] LABS: BILIRUBIN,TOTAL 0.4 mg/dL (0.2-1); TOT PROT 8.2 g/dl (6.4-8.2)
[2025-02-04] MEDS: ACETAMINOPHEN 1000 MG/100 ML BAG IVPB ONE (15:50)
[2025-02-04] MEDS ORDERED: ACETAMINOPHEN INJECTION 100 ML ONE (16:11)
[2025-02-04 16:38] LABS: ERYTHROCYTE SEDIMENTATION RATE 99 mm/hr (0-20)
[2025-02-04 17:27] LABS: URINE APPEARANCE CLEAR; URINE BILIRUBIN NEGATIVE (NEGATIVE); URINE COLOR YELLOW; URINE GLUCOSE (UA) 2+ (NEGATIVE); URINE KETONE NEGATIVE (NEGATIVE); URINE LEUK ESTERASE NEGATIVE (NEGATIVE); URINE NITRITE NEGATIVE (NEGATIVE); URINE PROTEIN NEGATIVE (NEGATIVE); URINE UROBILINOGEN 0.2 mg/dL (0.2-1.0)
[2025-02-04] MEDS: PIPERACILLIN/TAZOB 4.5 GM 4.5 GM in DEXTROSE 5%-WATER 100 ML IVPB ONE (17:28)
[2025-02-04] MEDS: VANCOMYCIN/WATER FOR INJ (PEG) 1,000 MG/200 ML BAG IVPB ONE (17:45)
[2025-02-04] MEDS: LACTATED RINGERS SOLUTION 1000 ML INFUS.BAG IV ONE (19:06)
[2025-02-04] MEDS ORDERED: ACETAMINOPHEN 325 MG TABLET (FP) PO PRN (23:01)
[2025-02-05] MEDS: PIPERACILLIN/TAZOB 4.5 GM 4.5 GM in DEXTROSE 5%-WATER 100 ML IVPB SCH (04:23)
[2025-02-05] MEDS ORDERED: PIPERACILLIN/TAZOB 4.5 GM 4.5 GM/100 ML BAG IVPB ONE ×2 (04:23→09:27)
[2025-02-05] MEDS: LACTATED RINGERS SOLUTION 1,000 ML/1,000 ML INFUS.BAG IV SCH (04:23)
[2025-02-05] MEDS: PIPERACILLIN/TAZOB 4.5 GM 4.5 GM in DEXTROSE 5%-WATER 100 ML IVPB ONE (04:24)
[2025-02-05] MEDS ORDERED: ACETAMINOPHEN 325 MG TABLET (FP) ONE (05:34)
[2025-02-05] MEDS: VANCOMYCIN PREMIX 1.5 GM 1,500 MG/300 ML BAG IVPB SCH (05:48)
[2025-02-05] MEDS ORDERED: VANCOMYCIN HCL 1,500 MG in DEXTROSE 5%-WATER - 250 ML IVPB SCH (06:00)
[2025-02-05] MEDS: ACETAMINOPHEN 500 MG TABLET (FP) PO ONE (06:04)
[2025-02-05] MEDS: GABAPENTIN 400 MG CAPSULE PO SCH (06:05)
[2025-02-05 06:54] LABS: HEMATOCRIT 34.1 % (40.1-51.0); HEMOGLOBIN 10.5 g/dL (13.7-17.5); MCHC 30.8 g/dl (32.3-36.5); MEAN CELL VOLUME 80.2 fl (79.0-92.2); MEAN PLT VOLUME 10.2 fl (9.4-12.4); PLATELET COUNT 247 x10^3/uL (163-337); RDW 17.2 % (12.2-16.1)
[2025-02-05 08:01] LABS: BLOOD UREA NITROGEN 62.2 mg/dL (7-18); CALCIUM 9.1 mg/dL (8.5-10.1); CREATININE 2.1 mg/dL (0.55-1.3); POTASSIUM 5.2 mmol/L (3.5-5.1)
[2025-02-05] MEDS ORDERED: BACLOFEN 10 MG TABLET (FP) ONE (09:42)
[2025-02-05] MEDS: BACLOFEN 10 MG TABLET (FP) PO SCH (10:33)
[2025-02-05] MEDS: TAMSULOSIN HCL 0.4 MG CAP PO SCH (21:35)
[2025-02-05] MEDS: AMITRIPTYLINE HCL 10 MG TABLET PO SCH (22:10)
[2025-02-05] MEDS: GABAPENTIN 250 MG/5 ML ORAL SOLUTION, 470 ML BOTTLE PO SCH (22:12)
[2025-02-06] MEDS: GABAPENTIN 250 MG/5 ML ORAL SOLUTION, 470 ML BOTTLE PO SCH (05:43)
[2025-02-06] MEDS: CEFTRIAXONE 1 G/50 ML PREMIX 50 ML IVPB SCH (12:58)
[2025-02-06] MEDS: SODIUM ZIRCONIUM CYCLOSILICATE (LOKELMA) 5 GM PACKET PO SCH (18:44)
[2025-02-07] MEDS ORDERED: PIPERACILLIN/TAZOB 4.5 GM 4.5 GM in DEXTROSE 5%-WATER 100 ML IVPB SCH (03:00)
[2025-02-08 07:47] LABS: POTASSIUM 4.2 mmol/L (3.5-5.1)
[2025-02-08 07:57] LABS: CALCIUM 9.2 mg/dL (8.5-10.1)
[2025-02-08 08:01] LABS: CREATININE 1.2 mg/dL (0.55-1.3)
[2025-02-08 08:02] LABS: TOT PROT 6.7 g/dl (6.4-8.2)
[2025-02-08 08:03] LABS: BILIRUBIN,TOTAL 0.2 mg/dL (0.2-1)
[2025-02-08 08:04] LABS: ALBUMIN 2.3 g/dl (3.4-5.0); BLOOD UREA NITROGEN 20.1 mg/dL (7-18)
[2025-02-08 08:08] LABS: ABSOLUTE IMMATURE GRANULOCYTES 0.13 x10^3/uL (0.0-0.031); BASOPHILS # 0.05 x10^3/uL (0.01-0.08); EOSINOPHIL % 2.5 % (0.8-7.0); EOSINOPHILS # 0.22 x10^3/uL (0.04-0.54); HEMATOCRIT 27.6 % (40.1-51.0); HEMOGLOBIN 8.5 g/dL (13.7-17.5); MCHC 30.8 g/dl (32.3-36.5); MEAN CELL VOLUME 80.5 fl (79.0-92.2); MEAN PLT VOLUME 9.9 fl (9.4-12.4); MONOCYTE # 0.69 x10^3/uL (0.30-0.82); MONOCYTE % 7.8 % (5.3-12.2); PLATELET COUNT 231 x10^3/uL (163-337); RDW 16.7 % (12.2-16.1)
[2025-02-08] MEDS: LACTATED RINGERS SOLUTION 1,000 ML/1,000 ML INFUS.BAG IV SCH (18:09)
[2025-02-08] MEDS: MAG HYDROX/AL HYDROX/SIMETH 30 ML UNIT-DOSE CUP PO ONE (18:12)
[2025-02-08] MEDS: SIMETHICONE 40 MG/0.6 ML BOTTLE PO PRN (22:01)
[2025-02-08] MEDS: POLYETHYLENE GLYCOL (HEALTHYLAX) 3350 17 GM PACKET PO SCH (22:04)
[2025-02-09 07:54] LABS: POTASSIUM 4.1 mmol/L (3.5-5.1)
[2025-02-09 07:56] LABS: CALCIUM 8.8 mg/dL (8.5-10.1)
[2025-02-09 07:57] LABS: ALBUMIN 2.4 g/dl (3.4-5.0); BLOOD UREA NITROGEN 13.7 mg/dL (7-18)
[2025-02-09 08:00] LABS: CREATININE 1.1 mg/dL (0.55-1.3)
[2025-02-09 08:01] LABS: BILIRUBIN,TOTAL 0.2 mg/dL (0.2-1); TOT PROT 6.8 g/dl (6.4-8.2)
[2025-02-09] MEDS ORDERED: MAG HYDROX/AL HYDROX/SIMETH 30 ML UNIT-DOSE CUP PO PRN (14:58)
[2025-02-10 14:02] LABS: N-TERMINAL BNP 1005.9 pg/ml (5-125)
[2025-02-10] MEDS: BACITRACIN ZINC 15 GM TUBE TOPICAL OINTMENT TP SCH (17:36)
[2025-02-10 22:26] VITALS: BP 134/79; PULSE 98; RESP 18; TEMP 99
== END 2025-02-10 22:26 | DRG 720 ==
LOC: JER 12:37 → JERBED 15:08 → J7W 02-05 13:32
PROVIDERS: ADMIT Internal Medicine; ATTEND Internal Medicine
DX: A41.9 Sepsis, unspecified organism (principal); I11.0 Hypertensive heart disease with heart failure; I96 Gangrene, not elsewhere classified; N17.9 Acute kidney failure, unspecified; I50.32 Chronic diastolic (congestive) heart failure; E11.40 Type 2 diabetes mellitus with diabetic neuropathy, unspecified; E11.51 Type 2 diabetes mellitus with diabetic peripheral angiopathy without gangrene; E87.1 Hypo-osmolality and hyponatremia; F25.0 Schizoaffective disorder, bipolar type; G20.A1 Parkinson's disease without dyskinesia, without mention of fluctuations; E66.9 Obesity, unspecified; I10 Essential (primary) hypertension; L03.119 Cellulitis of unspecified part of limb
CPT/HCPCS: 0241U-QW; 36415; 71045-TC-FY; 73700-TC-RT; 76775-TC; 80048; 80053; 80061; 81003; 82533; 82962; 83036; 83605; 83880; 84443; 84484; 85025; 85610; 85651; 85730; 86140; 87040; 87086; 93005; 93010; 93970-TC; 99285-25; J0131; J0475